=== PATIENT | female | born 1930 | race Two or more races ===

== ENCOUNTER 2017-05-14 18:47 | Inpatient (IN) | payer MEDICARE, OTHER ==
[2017-05-14 21:21] LABS: ADD UMIC YES; UR ASCORBIC ACID NEGATIVE (NEGATIVE); UR BILIRUBIN (Dip) NEGATIVE (NEGATIVE); UR BLOOD (Dip) 1+ mg/dL (NEGATIVE); UR CLARITY CLEAR (CLEAR); UR COLOR STRAW (YELLOW); UR GLUCOSE (Dip) NEGATIVE (NEGATIVE); UR KETONES (Dip) NEGATIVE (NEGATIVE); UR LEUKOCYTE ESTERASE (Dip) 2+ Leu/ul (NEGATIVE); UR NITRITE (Dip) NEGATIVE (NEGATIVE); UR RBC 0 /HPF (0-5); UR SPECIFIC GRAVITY (Dip) 1.005 (1.003-1.030); UR TOTAL PROTEIN (Dip) NEGATIVE (NEGATIVE); UR UROBILINOGEN (Dip) NEGATIVE (NEGATIVE); UR WBC 21 /HPF (0-5)
[2017-05-14 21:33] LABS: ADD MAN DIFF? NO
[2017-05-14 21:36] LABS: WHITE BLOOD COUNT 6.1 10^3/ul (4.8-10.8)
[2017-05-14 21:36] LABS: BASOPHILS % 0.5 % (0.0-2.0); EOSINOPHILS % 0.3 % (0.0-7.0); HEMATOCRIT 34.7 % (37.0-47.0); HEMOGLOBIN 10.8 g/dl (12.0-16.0); LYMPHOCYTES # 1.8 10^3/ul (0.8-2.9); LYMPHOCYTES % 29.3 % (15.0-51.0); MEAN CORPUSCULAR HEMOGLOBIN 23.5 pg (29.0-33.0); MEAN CORPUSCULAR HGB CONC 31.1 g/dl (32.0-37.0); MEAN CORPUSCULAR VOLUME 75.6 fl (82.0-101.0); MEAN PLATELET VOLUME 9.7 fl (7.4-10.4); MONOCYTE # 0.7 10^3/ul (0.3-0.9); MONOCYTES % 10.7 % (0.0-11.0); NEUTROPHIL # 3.6 10^3/ul (1.6-7.5); NEUTROPHILS % 58.5 % (39.0-77.0); PLATELET COUNT 187 10^3/UL (140-415); RED BLOOD COUNT 4.59 10^6/ul (4.20-5.40); RED CELL DISTRIBUTION WIDTH 15.9 % (11.5-14.5)
[2017-05-14] MEDS: morphine 2 MG INJ IV (21:38)
[2017-05-14] MEDS: SOD CHLORIDE 0.9% 1,000 ML IV (21:40)
[2017-05-14 21:53] LABS: ALANINE AMINOTRANSFERASE 24 IU/L (13-69); ALBUMIN 4.6 g/dl (3.3-4.9); ALBUMIN/GLOBULIN RATIO 1.17; ALKALINE PHOSPHATASE 126 IU/L (42-121); ANION GAP 18 (8-16); ASPARTATE AMINO TRANSFERASE 28 IU/L (15-46); BILIRUBIN,INDIRECT 0.1 mg/dl (0-1.1); BILIRUBIN,TOTAL 0.1 mg/dl (0.2-1.3); BLOOD UREA NITROGEN 25 mg/dl (7-20); CALCIUM 9.3 mg/dl (8.4-10.2); CARBON DIOXIDE 28 mmol/L (21-31); CHLORIDE 102 mmol/L (97-110); CREATININE 0.91 mg/dl (0.44-1.00); GLUCOSE 97 mg/dl (70-220); LIPASE 62 U/L (23-300); POTASSIUM 4.1 mmol/L (3.5-5.1); SODIUM 144 mmol/L (135-144); TOTAL PROTEIN 8.5 g/dl (6.1-8.1)
[2017-05-14 21:57] LABS: LACTIC ACID 1.4 mmol/L (0.5-2.0)
[2017-05-14 22:04] LABS: TROPONIN-I < 0.012 ng/ml (0.00-0.12)
[2017-05-14] MEDS: SOD CHLORIDE 0.9% 100 ML (22:57)
[2017-05-14] MEDS: IOHEXOL 300MG/ML 150 ML BTL (22:57)
[2017-05-14] MEDS: traMADol 50 MG TAB PO (23:21)
[2017-05-15] MEDS ORDERED: ONDANSETRON 4 MG INJ IV
[2017-05-15] MEDS: CEFEPIME 1GM/50 ML (PMX) 50 ML IVPB ×2 (00:42→23:26)
[2017-05-15] MEDS: SOD CHLORIDE 0.9% 1,000 ML IV ×2 (03:38→17:57)
[2017-05-15 04:47] LABS: ADD MAN DIFF? NO
[2017-05-15 04:53] LABS: WHITE BLOOD COUNT 4.5 10^3/ul (4.8-10.8)
[2017-05-15 04:53] LABS: BASOPHILS % 0.4 % (0.0-2.0); EOSINOPHILS % 0.4 % (0.0-7.0); HEMATOCRIT 31.1 % (37.0-47.0); HEMOGLOBIN 9.8 g/dl (12.0-16.0); LYMPHOCYTES # 1.3 10^3/ul (0.8-2.9); LYMPHOCYTES % 28.3 % (15.0-51.0); MEAN CORPUSCULAR HGB CONC 31.5 g/dl (32.0-37.0); MEAN PLATELET VOLUME 9.3 fl (7.4-10.4); MONOCYTE # 0.6 10^3/ul (0.3-0.9); MONOCYTES % 14.2 % (0.0-11.0); NEUTROPHIL # 2.5 10^3/ul (1.6-7.5); PLATELET COUNT 144 10^3/UL (140-415); RED BLOOD COUNT 4.09 10^6/ul (4.20-5.40); RED CELL DISTRIBUTION WIDTH 15.6 % (11.5-14.5)
[2017-05-15 05:15] LABS: ALANINE AMINOTRANSFERASE 27 IU/L (13-69); ALBUMIN 3.7 g/dl (3.3-4.9); ALBUMIN/GLOBULIN RATIO 1.23; ALKALINE PHOSPHATASE 108 IU/L (42-121); ANION GAP 14 (8-16); ASPARTATE AMINO TRANSFERASE 17 IU/L (15-46); BILIRUBIN,INDIRECT 0.1 mg/dl (0-1.1); BILIRUBIN,TOTAL 0.1 mg/dl (0.2-1.3); BLOOD UREA NITROGEN 21 mg/dl (7-20); CALCIUM 8.8 mg/dl (8.4-10.2); CARBON DIOXIDE 28 mmol/L (21-31); CHLORIDE 107 mmol/L (97-110); CREATININE 0.83 mg/dl (0.44-1.00); GLUCOSE 108 mg/dl (70-220); MAGNESIUM 1.4 mg/dl (1.7-2.5); PHOSPHORUS 3.6 mg/dl (2.5-4.9); POTASSIUM 3.7 mmol/L (3.5-5.1); SODIUM 145 mmol/L (135-144); TOTAL PROTEIN 6.7 g/dl (6.1-8.1)
[2017-05-15 05:56] LABS: IRON 49 ug/dl (35-150)
[2017-05-15 05:57] LABS: URIC ACID 6.3 mg/dl (3.1-7.9)
[2017-05-15 06:05] LABS: % IRON SATURATION 13 % SAT (22-52); TOTAL IRON BINDING CAPACITY 371 ug/dl (241-421)
[2017-05-15 06:30] LABS: FERRITIN 10.8 ng/ml (11.1-264.0)
[2017-05-15 07:00] LABS: FOLATE 9.4 ng/ml (2.8-20.0)
[2017-05-15] MEDS: traMADol 50 MG TAB PO ×2 (09:38→23:24)
[2017-05-15] MEDS: CYANOCOBALAMIN 1000 MCG INJ IM (09:39)
[2017-05-15 09:50] LABS: ERYTHROCYTE SEDIMENTATION RATE 35 mm/Hr (0-30)
[2017-05-15 11:45] LABS: CANCER ANTIGEN 125 < 5.5 U/ml (0.0-35.0)
[2017-05-15] MEDS: LACTULOSE 30ML CUP PO ×3 (12:58→21:42)
[2017-05-15] MEDS: MAGNESIUM CITRATE 300 ML BTL PO (14:21)
[2017-05-15] MEDS: MAGNESIUM SULFATE 2 GM/50 ML 50 ML IVPB (14:22)
[2017-05-15] MEDS: SOD FERRIC GLUC COMPLX 125 MG in SOD CHLORIDE 0.9% 100 ML IVPB (16:53)
[2017-05-15] MEDS: VALSARTAN 160 MG TAB PO (21:41)
[2017-05-15] MEDS: ATORVASTATIN 40 MG TAB PO (21:42)
[2017-05-15] MEDS: FAMOTIDINE 20 MG TAB PO (21:42)
[2017-05-16] MEDS: LACTULOSE 30ML CUP PO ×6 (01:00→20:45)
[2017-05-16] MEDS: SOD CHLORIDE 0.9% 1,000 ML IV (01:03)
[2017-05-16] MEDS: ZOLPIDEM 5 MG TAB PO ×2 (01:07→23:00)
[2017-05-16 06:50] LABS: ADD MAN DIFF? NO
[2017-05-16 06:57] LABS: BASOPHILS % 0.3 % (0.0-2.0); EOSINOPHILS % 0.8 % (0.0-7.0); HEMATOCRIT 29.8 % (37.0-47.0); HEMOGLOBIN 9.3 g/dl (12.0-16.0); LYMPHOCYTES # 1.1 10^3/ul (0.8-2.9); LYMPHOCYTES % 28.9 % (15.0-51.0); MEAN CORPUSCULAR HEMOGLOBIN 24.2 pg (29.0-33.0); MEAN CORPUSCULAR HGB CONC 31.2 g/dl (32.0-37.0); MEAN CORPUSCULAR VOLUME 77.4 fl (82.0-101.0); MONOCYTE # 0.6 10^3/ul (0.3-0.9); NEUTROPHIL # 2.2 10^3/ul (1.6-7.5); NEUTROPHILS % 54.5 % (39.0-77.0); PLATELET COUNT 154 10^3/UL (140-415); RED BLOOD COUNT 3.85 10^6/ul (4.20-5.40); RED CELL DISTRIBUTION WIDTH 15.8 % (11.5-14.5)
[2017-05-16 06:57] LABS: WHITE BLOOD COUNT 3.9 10^3/ul (4.8-10.8)
[2017-05-16 07:20] LABS: ANION GAP 13 (8-16); BLOOD UREA NITROGEN 13 mg/dl (7-20); CALCIUM 8.6 mg/dl (8.4-10.2); CARBON DIOXIDE 27 mmol/L (21-31); CHLORIDE 110 mmol/L (97-110); CREATININE 0.75 mg/dl (0.44-1.00); GLUCOSE 104 mg/dl (70-220); MAGNESIUM 2.1 mg/dl (1.7-2.5); PHOSPHORUS 3.3 mg/dl (2.5-4.9); POTASSIUM 3.8 mmol/L (3.5-5.1); SODIUM 146 mmol/L (135-144)
[2017-05-16] MEDS: CYANOCOBALAMIN 1000 MCG INJ IM (09:22)
[2017-05-16] MEDS: CHOLECALCIFEROL 1,000 UNIT TAB PO (09:23)
[2017-05-16] MEDS: FAMOTIDINE 20 MG TAB PO ×3 (09:23→21:00)
[2017-05-16] MEDS: SERTRALINE 100 MG TAB PO (09:23)
[2017-05-16] MEDS: ASPIRIN (EC) 81 MG TAB PO (09:23)
[2017-05-16 11:02] LABS: CA27.29 17 U/mL (<38)
[2017-05-16] MEDS: SOD FERRIC GLUC COMPLX 125 MG in SOD CHLORIDE 0.9% 100 ML IVPB (17:44)
[2017-05-16] MEDS: FOSFOMYCIN 3 GM PACKET PO (17:44)
[2017-05-16] MEDS: DOXYCYCLINE 100 MG TAB PO ×2 (20:43→21:00)
[2017-05-16] MEDS: LIDOCAINE 5% PATCH TD (20:43)
[2017-05-16] MEDS: hydrOXYzine HCL 25 MG TAB PO ×2 (20:43→22:00)
[2017-05-16] MEDS: VALSARTAN 160 MG TAB PO (20:44)
[2017-05-16] MEDS: ATORVASTATIN 40 MG TAB PO (20:44)
[2017-05-16] MEDS: traMADol 50 MG TAB PO (20:45)
[2017-05-16] MEDS: SILVER SULFADIAZINE 1% 25 GM CR TOP (20:46)
[2017-05-17] MEDS: LACTULOSE 30ML CUP PO ×6 (01:00→21:36)
[2017-05-17] MEDS ORDERED: PANTOPRAZOLE (EC) 40 MG TAB PO (06:00)
[2017-05-17] MEDS: SERTRALINE 100 MG TAB PO (08:46)
[2017-05-17] MEDS: DOXYCYCLINE 100 MG TAB PO ×2 (08:46→21:36)
[2017-05-17] MEDS: hydrOXYzine HCL 25 MG TAB PO ×2 (08:46→21:36)
[2017-05-17] MEDS: FAMOTIDINE 20 MG TAB PO ×2 (08:46→21:36)
[2017-05-17] MEDS: CHOLECALCIFEROL 1,000 UNIT TAB PO (08:47)
[2017-05-17] MEDS: SILVER SULFADIAZINE 1% 25 GM CR TOP ×2 (08:47→21:37)
[2017-05-17] MEDS: LIDOCAINE 5% PATCH TD (08:47)
[2017-05-17] MEDS: ASPIRIN (EC) 81 MG TAB PO (08:47)
[2017-05-17] MEDS ORDERED: LIDOCAINE 5% PATCH TD (09:00)
[2017-05-17] MEDS: OXYBUTYNIN 5 MG TAB PO ×3 (09:00→21:36)
[2017-05-17] MEDS: CYANOCOBALAMIN 1000 MCG INJ IM ×2 (09:00→11:36)
[2017-05-17] MEDS: traMADol 50 MG TAB PO ×2 (11:27→21:36)
[2017-05-17] MEDS ORDERED: NON-FORMULARY/PATIENT OWN MED (Valsartan-Hydrochlorothiazide (Valsartan-HCTZ) 1 TAB) PO (12:00)
[2017-05-17] MEDS: HYDROCHLOROTHIAZIDE 25 MG TAB PO (12:07)
[2017-05-17] MEDS: VALSARTAN 160 MG TAB PO ×2 (12:07→21:35)
[2017-05-17] MEDS: PEG/ELECTROLYTES 4L BTL PO (15:03)
[2017-05-17] MEDS: SOD FERRIC GLUC COMPLX 125 MG in SOD CHLORIDE 0.9% 100 ML IVPB (17:35)
[2017-05-17] MEDS: ATORVASTATIN 40 MG TAB PO (21:00)
[2017-05-17] MEDS: ONDANSETRON 4 MG INJ IV (22:32)
[2017-05-18] MEDS: LACTULOSE 30ML CUP PO ×6 (00:31→21:00)
[2017-05-18] MEDS ORDERED: POTASSIUM CHLORIDE 50 ML IVPB (06:00)
[2017-05-18] MEDS: hydrOXYzine HCL 25 MG TAB PO ×2 (09:00→21:00)
[2017-05-18] MEDS: DOXYCYCLINE 100 MG TAB PO ×2 (09:00→21:59)
[2017-05-18] MEDS: ASPIRIN (EC) 81 MG TAB PO (09:00)
[2017-05-18] MEDS: SERTRALINE 100 MG TAB PO (09:00)
[2017-05-18] MEDS: VALSARTAN 160 MG TAB PO ×2 (09:00→21:59)
[2017-05-18] MEDS: CHOLECALCIFEROL 1,000 UNIT TAB PO (09:00)
[2017-05-18] MEDS: HYDROCHLOROTHIAZIDE 25 MG TAB PO (09:00)
[2017-05-18] MEDS: OXYBUTYNIN 5 MG TAB PO ×3 (09:00→21:59)
[2017-05-18] MEDS: FAMOTIDINE 20 MG TAB PO ×2 (09:00→21:59)
[2017-05-18] MEDS: LIDOCAINE 5% PATCH TD (10:04)
[2017-05-18] MEDS: CYANOCOBALAMIN 1000 MCG INJ IM (10:04)
[2017-05-18] MEDS: SILVER SULFADIAZINE 1% 25 GM CR TOP ×2 (10:30→22:01)
[2017-05-18] MEDS: DEXTROSE 5%-0.45% NACL 1,000 ML IV (13:36)
[2017-05-18] MEDS: SOD FERRIC GLUC COMPLX 125 MG in SOD CHLORIDE 0.9% 100 ML IVPB (17:00)
[2017-05-18] MEDS ORDERED: FENTAnyl 50 MCG/ML VIAL (17:49)
[2017-05-18] MEDS ORDERED: PROPOFOL 40 ML (17:49)
[2017-05-18] MEDS ORDERED: LIDOCAINE 100 MG SYRINGE (17:50)
[2017-05-18] MEDS ORDERED: EPHEDrine SULFATE 50 MG/5 ML SYG IV (18:00)
[2017-05-18] MEDS ORDERED: TRIMETHOBENZAMIDE 100 MG/ML VIAL IM (18:00)
[2017-05-18] MEDS ORDERED: FENTAnyl 50 MCG/ML VIAL IV ×3 (18:00)
[2017-05-18] MEDS ORDERED: HYDROmorphONE (0.2 MG/ML) 10ML SYG IV ×3 (18:00)
[2017-05-18] MEDS ORDERED: MEPERIDINE 25 MG INJ IV (18:00)
[2017-05-18] MEDS ORDERED: MIDAZOLAM 1 MG/ML 2 ML INJ IV (18:00)
[2017-05-18] MEDS ORDERED: DIPHENHYDRAMINE 50 MG INJ IV (18:00)
[2017-05-18] MEDS ORDERED: ALBUTEROL 0.083% (NEB) 2.5 MG/3 ML AMP HHN (18:00)
[2017-05-18] MEDS ORDERED: ONDANSETRON 4 MG INJ IV (18:00)
[2017-05-18] MEDS ORDERED: hydrALAzine 20 MG INJ IV (18:00)
[2017-05-18] MEDS ORDERED: LABETALOL HCL 20MG INJ IV (18:00)
[2017-05-18] MEDS ORDERED: IPRATROPIUM (NEB) 0.5 MG/2.5 ML AMP HHN (18:00)
[2017-05-18] MEDS: ATORVASTATIN 40 MG TAB PO (22:01)
[2017-05-18] MEDS: ZOLPIDEM 5 MG TAB PO (22:12)
[2017-05-18 22:32] LABS: CANCER ANTIGEN 15-3 11 U/mL (<32)
[2017-05-19] MEDS: traMADol 50 MG TAB PO ×2 (00:16→14:24)
[2017-05-19] MEDS: LACTULOSE 30ML CUP PO ×7 (01:00→22:20)
[2017-05-19 04:48] LABS: ADD MAN DIFF? NO
[2017-05-19 04:53] LABS: BASOPHILS % 0.4 % (0.0-2.0); EOSINOPHILS # 0.1 10^3/ul (0.0-0.5); HEMATOCRIT 31.6 % (37.0-47.0); HEMOGLOBIN 9.8 g/dl (12.0-16.0); LYMPHOCYTES % 20.5 % (15.0-51.0); MEAN CORPUSCULAR HEMOGLOBIN 24.1 pg (29.0-33.0); MEAN CORPUSCULAR VOLUME 77.8 fl (82.0-101.0); MEAN PLATELET VOLUME 9.9 fl (7.4-10.4); MONOCYTE # 0.7 10^3/ul (0.3-0.9); NEUTROPHIL # 3.1 10^3/ul (1.6-7.5); NEUTROPHILS % 63.3 % (39.0-77.0); PLATELET COUNT 156 10^3/UL (140-415); RED BLOOD COUNT 4.06 10^6/ul (4.20-5.40); RED CELL DISTRIBUTION WIDTH 15.9 % (11.5-14.5)
[2017-05-19 04:53] LABS: WHITE BLOOD COUNT 4.8 10^3/ul (4.8-10.8)
[2017-05-19 05:07] LABS: ANION GAP 12 (8-16); BLOOD UREA NITROGEN 11 mg/dl (7-20); CALCIUM 8.6 mg/dl (8.4-10.2); CARBON DIOXIDE 30 mmol/L (21-31); CHLORIDE 106 mmol/L (97-110); CREATININE 0.81 mg/dl (0.44-1.00); GLUCOSE 93 mg/dl (70-220); MAGNESIUM 1.7 mg/dl (1.7-2.5); POTASSIUM 3.8 mmol/L (3.5-5.1); SODIUM 144 mmol/L (135-144)
[2017-05-19] MEDS: SILVER SULFADIAZINE 1% 25 GM CR TOP ×2 (09:00→22:26)
[2017-05-19] MEDS: OXYBUTYNIN 5 MG TAB PO ×3 (09:57→22:18)
[2017-05-19] MEDS: ASPIRIN (EC) 81 MG TAB PO (09:57)
[2017-05-19] MEDS: CHOLECALCIFEROL 1,000 UNIT TAB PO (09:57)
[2017-05-19] MEDS: LIDOCAINE 5% PATCH TD (09:57)
[2017-05-19] MEDS: DOXYCYCLINE 100 MG TAB PO ×2 (09:58→22:19)
[2017-05-19] MEDS: HYDROCHLOROTHIAZIDE 25 MG TAB PO (09:58)
[2017-05-19] MEDS: FAMOTIDINE 20 MG TAB PO ×2 (09:58→22:19)
[2017-05-19] MEDS: CYANOCOBALAMIN 1000 MCG INJ IM (09:58)
[2017-05-19] MEDS: hydrOXYzine HCL 25 MG TAB PO ×2 (09:58→22:19)
[2017-05-19] MEDS: SERTRALINE 100 MG TAB PO (09:58)
[2017-05-19] MEDS: VALSARTAN 160 MG TAB PO ×2 (09:58→22:19)
[2017-05-19] MEDS: SOD FERRIC GLUC COMPLX 125 MG in SOD CHLORIDE 0.9% 100 ML IVPB (17:34)
[2017-05-19] MEDS: ATORVASTATIN 40 MG TAB PO (22:19)
[2017-05-19] MEDS: NYSTATIN 30 GM POWDER BTL TOP (22:20)
[2017-05-19] MEDS: ONDANSETRON 4 MG INJ IV (23:19)
[2017-05-20] MEDS: traMADol 50 MG TAB PO ×2 (00:33→22:23)
[2017-05-20] MEDS: LACTULOSE 30ML CUP PO ×5 (01:00→21:00)
[2017-05-20] MEDS: DOXYCYCLINE 100 MG TAB PO ×2 (09:03→22:12)
[2017-05-20] MEDS: CHOLECALCIFEROL 1,000 UNIT TAB PO (09:03)
[2017-05-20] MEDS: OXYBUTYNIN 5 MG TAB PO ×3 (09:04→21:00)
[2017-05-20] MEDS: hydrOXYzine HCL 25 MG TAB PO ×2 (09:04→22:12)
[2017-05-20] MEDS: ASPIRIN (EC) 81 MG TAB PO (09:04)
[2017-05-20] MEDS: SERTRALINE 100 MG TAB PO (09:04)
[2017-05-20] MEDS: FAMOTIDINE 20 MG TAB PO ×2 (09:04→21:00)
[2017-05-20] MEDS: HYDROCHLOROTHIAZIDE 25 MG TAB PO (09:05)
[2017-05-20] MEDS: VALSARTAN 160 MG TAB PO ×2 (09:07→22:15)
[2017-05-20] MEDS: LIDOCAINE 5% PATCH TD ×3 (09:08→22:38)
[2017-05-20] MEDS: CYANOCOBALAMIN 1000 MCG INJ IM (09:08)
[2017-05-20] MEDS: SILVER SULFADIAZINE 1% 25 GM CR TOP ×2 (09:14→22:39)
[2017-05-20] MEDS: NYSTATIN 30 GM POWDER BTL TOP ×2 (09:14→22:39)
[2017-05-20] MEDS ORDERED: CYANOCOBALAMIN 1000 MCG INJ IM (15:00)
[2017-05-20] MEDS: ATORVASTATIN 40 MG TAB PO (21:00)
[2017-05-20] MEDS: GUAIFENESIN 20 MG/ML 5ML CUP PO (22:12)
[2017-05-21] MEDS: LACTULOSE 30ML CUP PO ×7 (01:00→21:20)
[2017-05-21] MEDS: LIDOCAINE 5% PATCH TD ×3 (09:00→11:16)
[2017-05-21] MEDS: CYANOCOBALAMIN 1000 MCG INJ IM (11:08)
[2017-05-21] MEDS: VALSARTAN 160 MG TAB PO ×2 (11:09→21:19)
[2017-05-21] MEDS: ASPIRIN (EC) 81 MG TAB PO (11:09)
[2017-05-21] MEDS: hydrOXYzine HCL 25 MG TAB PO ×2 (11:09→22:11)
[2017-05-21] MEDS: OXYBUTYNIN 5 MG TAB PO ×3 (11:09→21:20)
[2017-05-21] MEDS: FAMOTIDINE 20 MG TAB PO ×2 (11:10→21:19)
[2017-05-21] MEDS: SERTRALINE 100 MG TAB PO (11:10)
[2017-05-21] MEDS: DOXYCYCLINE 100 MG TAB PO ×2 (11:10→21:18)
[2017-05-21] MEDS: CHOLECALCIFEROL 1,000 UNIT TAB PO (11:10)
[2017-05-21] MEDS: HYDROCHLOROTHIAZIDE 25 MG TAB PO (11:10)
[2017-05-21] MEDS: NYSTATIN 30 GM POWDER BTL TOP ×2 (11:11→21:20)
[2017-05-21] MEDS: SILVER SULFADIAZINE 1% 25 GM CR TOP ×2 (11:11→21:20)
[2017-05-21] MEDS: ONDANSETRON 4 MG INJ IV (13:55)
[2017-05-21] MEDS ORDERED: IPRATROPIUM (NEB) 0.5 MG/2.5 ML AMP HHN (18:00)
[2017-05-21] MEDS: AZITHROMYCIN 500MG/NS (PMX) 250 ML IVPB (20:02)
[2017-05-21] MEDS: LEVOFLOXACIN 500 MG TAB PO (21:19)
[2017-05-21] MEDS: ATORVASTATIN 40 MG TAB PO (21:43)
[2017-05-22] MEDS: ZOLPIDEM 5 MG TAB PO ×2 (00:10→22:53)
[2017-05-22] MEDS: LACTULOSE 30ML CUP PO ×6 (01:00→20:20)
[2017-05-22] MEDS: traMADol 50 MG TAB PO ×3 (04:08→21:20)
[2017-05-22] MEDS: LEVOFLOXACIN 250 MG TAB PO (05:50)
[2017-05-22] MEDS: CYANOCOBALAMIN 1000 MCG INJ IM (08:33)
[2017-05-22] MEDS: FAMOTIDINE 20 MG TAB PO ×2 (08:33→20:20)
[2017-05-22] MEDS: ASPIRIN (EC) 81 MG TAB PO (08:33)
[2017-05-22] MEDS: CHOLECALCIFEROL 1,000 UNIT TAB PO (08:33)
[2017-05-22] MEDS: DOXYCYCLINE 100 MG TAB PO ×2 (08:33→20:20)
[2017-05-22] MEDS: HYDROCHLOROTHIAZIDE 25 MG TAB PO (08:34)
[2017-05-22] MEDS: OXYBUTYNIN 5 MG TAB PO ×4 (08:34→20:29)
[2017-05-22] MEDS: hydrOXYzine HCL 25 MG TAB PO ×2 (08:35→20:23)
[2017-05-22] MEDS: VALSARTAN 160 MG TAB PO ×2 (08:35→21:15)
[2017-05-22] MEDS: SERTRALINE 100 MG TAB PO (08:35)
[2017-05-22] MEDS: LIDOCAINE 5% PATCH TD ×3 (08:36→08:43)
[2017-05-22] MEDS: SILVER SULFADIAZINE 1% 25 GM CR TOP ×2 (08:43→20:24)
[2017-05-22] MEDS: NYSTATIN 30 GM POWDER BTL TOP ×2 (08:43→20:24)
[2017-05-22 11:26] LABS: HEMATOCRIT 37.1 % (37.0-47.0); HEMOGLOBIN 11.5 g/dl (12.0-16.0); MEAN CORPUSCULAR VOLUME 77.5 fl (82.0-101.0); MEAN PLATELET VOLUME 10.3 fl (7.4-10.4); PLATELET COUNT 162 10^3/UL (140-415); RED BLOOD COUNT 4.79 10^6/ul (4.20-5.40); RED CELL DISTRIBUTION WIDTH 16.4 % (11.5-14.5)
[2017-05-22 11:26] LABS: WHITE BLOOD COUNT 3.5 10^3/ul (4.8-10.8)
[2017-05-22 11:30] LABS: ADD MAN DIFF? YES; POSITIVE DIFF @See below
[2017-05-22 13:22] LABS: ANISOCYTOSIS 2+ (0-0); BAND NEUTROPHILS #M 0.4 10^3/ul (0.0-0.6); BAND NEUTROPHILS % (M) 12 % (0-4); EOSINOPHILS % (M) 1 % (0-7); ERYTHROBLAST% (NRBC) (M) 3 % (0-0); GIANT THROMBO% (M) 3 % (0-0); LYMPHOCYTES #M 0.4 10^3/ul (0.8-2.9); LYMPHOCYTES % (M) 14 % (15-51); MICROCYTOSIS 2+ (0-0); MONOCYTE #M 0.3 10^3/ul (0.3-0.9); MONOCYTES % (M) 10 % (0-11); MYELOCYTES % (M) 1 % (0-0); PLATELET ESTIMATE NORMAL; POIKILOCYTOSIS 2+ (0-0); REACTIVE LYMPHOCYTES #M 0.5 10^3/ul (0.0-0.0); REACTIVE LYMPHOCYTES% (M) 16 % (0-0); SEG NEUT #M 1.6 10^3/ul (1.6-7.5); SEGMENTED NEUTROPHILS (M) % 46 % (39-77); SMUDGE%M 10 % (0-0)
[2017-05-22] MEDS: IPRATROPIUM (NEB) 0.5 MG/2.5 ML AMP HHN ×3 (14:01→21:17)
[2017-05-22] MEDS: GUAIFENESIN 20 MG/ML 5ML CUP PO ×4 (14:17→20:22)
[2017-05-22] MEDS: AZITHROMYCIN 250 MG TAB PO (18:01)
[2017-05-22] MEDS: ATORVASTATIN 40 MG TAB PO (20:20)
[2017-05-23] MEDS: LACTULOSE 30ML CUP PO ×6 (00:38→20:38)
[2017-05-23] MEDS: IPRATROPIUM (NEB) 0.5 MG/2.5 ML AMP HHN ×6 (01:00→20:11)
[2017-05-23] MEDS: GUAIFENESIN 20 MG/ML 5ML CUP PO ×6 (04:38→20:38)
[2017-05-23 05:53] LABS: WHITE BLOOD COUNT 3.8 10^3/ul (4.8-10.8)
[2017-05-23 05:53] LABS: HEMOGLOBIN 11.3 g/dl (12.0-16.0); MEAN CORPUSCULAR HEMOGLOBIN 23.9 pg (29.0-33.0); MEAN CORPUSCULAR HGB CONC 30.5 g/dl (32.0-37.0); MEAN CORPUSCULAR VOLUME 78.2 fl (82.0-101.0); MEAN PLATELET VOLUME 9.7 fl (7.4-10.4); PLATELET COUNT 164 10^3/UL (140-415); RED BLOOD COUNT 4.73 10^6/ul (4.20-5.40); RED CELL DISTRIBUTION WIDTH 16.8 % (11.5-14.5)
[2017-05-23 06:09] LABS: ADD MAN DIFF? YES; POSITIVE DIFF @See below
[2017-05-23 06:31] LABS: ANION GAP 17 (8-16); BLOOD UREA NITROGEN 22 mg/dl (7-20); CALCIUM 8.9 mg/dl (8.4-10.2); CARBON DIOXIDE 28 mmol/L (21-31); CHLORIDE 100 mmol/L (97-110); CREATININE 1.07 mg/dl (0.44-1.00); GLUCOSE 98 mg/dl (70-220); MAGNESIUM 1.5 mg/dl (1.7-2.5); PHOSPHORUS 4.9 mg/dl (2.5-4.9); POTASSIUM 4.4 mmol/L (3.5-5.1); SODIUM 141 mmol/L (135-144)
[2017-05-23 08:01] LABS: ANISOCYTOSIS 3+ (0-0); BAND NEUTROPHILS #M 0.2 10^3/ul (0.0-0.6); BAND NEUTROPHILS % (M) 6 % (0-4); GIANT THROMBO% (M) 2 % (0-0); LYMPHOCYTES #M 0.7 10^3/ul (0.8-2.9); LYMPHOCYTES % (M) 21 % (15-51); MICROCYTOSIS 2+ (0-0); MONOCYTE #M 0.5 10^3/ul (0.3-0.9); MONOCYTES % (M) 15 % (0-11); MYELOCYTES % (M) 1 % (0-0); PLATELET ESTIMATE NORMAL; POIKILOCYTOSIS 2+ (0-0); POLYCHROMASIA 3+ (0-0); PROMYELOCYTES % (M) 1 % (0-0); REACTIVE LYMPHOCYTES #M 0.6 10^3/ul (0.0-0.0); REACTIVE LYMPHOCYTES% (M) 17 % (0-0); SEG NEUT #M 1.5 10^3/ul (1.6-7.5); SEGMENTED NEUTROPHILS (M) % 39 % (39-77); SMUDGE%M 2 % (0-0)
[2017-05-23] MEDS: CHOLECALCIFEROL 1,000 UNIT TAB PO (09:47)
[2017-05-23] MEDS: OXYBUTYNIN 5 MG TAB PO ×3 (09:47→20:38)
[2017-05-23] MEDS: ASPIRIN (EC) 81 MG TAB PO (09:47)
[2017-05-23] MEDS: hydrOXYzine HCL 25 MG TAB PO ×2 (09:47→20:41)
[2017-05-23] MEDS: CYANOCOBALAMIN 1000 MCG INJ IM (09:47)
[2017-05-23] MEDS: SERTRALINE 100 MG TAB PO (09:47)
[2017-05-23] MEDS: DOXYCYCLINE 100 MG TAB PO ×2 (09:48→20:38)
[2017-05-23] MEDS: FAMOTIDINE 20 MG TAB PO ×2 (09:48→20:39)
[2017-05-23] MEDS: HYDROCHLOROTHIAZIDE 25 MG TAB PO (09:49)
[2017-05-23] MEDS: MAGNESIUM SULFATE 2 GM/50 ML 50 ML IVPB (09:50)
[2017-05-23] MEDS: NYSTATIN 30 GM POWDER BTL TOP ×2 (09:51→20:42)
[2017-05-23] MEDS: SILVER SULFADIAZINE 1% 25 GM CR TOP ×2 (09:51→20:42)
[2017-05-23] MEDS: LIDOCAINE 5% PATCH TD ×3 (09:56→09:58)
[2017-05-23] MEDS: AZITHROMYCIN 250 MG TAB PO (18:07)
[2017-05-23] MEDS: ATORVASTATIN 40 MG TAB PO (20:39)
== END 2017-05-23 21:30 | DRG 312 ==
LOC: PP2 23:54 → E/R 18:47
PROC: 0DJD8ZZ Inspection of Lower Intestinal Tract, Via Natural or Artificial Opening Endoscopic (ICD-10-PCS; principal; 2017-05-18 17:05)
DX: R55 Syncope and collapse (principal); J90 Pleural effusion, not elsewhere classified; E87.0 Hyperosmolality and hypernatremia; D61.818 Other pancytopenia; R65.10 Systemic inflammatory response syndrome (SIRS) of non-infectious origin without acute organ dysfunction; G91.2 (Idiopathic) normal pressure hydrocephalus; N39.0 Urinary tract infection, site not specified; M48.52XA Collapsed vertebra, not elsewhere classified, cervical region, initial encounter for fracture; J98.11 Atelectasis; L03.116 Cellulitis of left lower limb; L03.115 Cellulitis of right lower limb; M48.54XA Collapsed vertebra, not elsewhere classified, thoracic region, initial encounter for fracture; M48.56XA Collapsed vertebra, not elsewhere classified, lumbar region, initial encounter for fracture; E83.42 Hypomagnesemia; E86.0 Dehydration; I10 Essential (primary) hypertension; Z85.3 Personal history of malignant neoplasm of breast; E78.5 Hyperlipidemia, unspecified; F32.9 Major depressive disorder, single episode, unspecified; D50.9 Iron deficiency anemia, unspecified; R15.9 Full incontinence of feces; R32 Unspecified urinary incontinence; K21.9 Gastro-esophageal reflux disease without esophagitis; I25.10 Atherosclerotic heart disease of native coronary artery without angina pectoris; D25.9 Leiomyoma of uterus, unspecified; J43.2 Centrilobular emphysema; K44.9 Diaphragmatic hernia without obstruction or gangrene; M40.203 Unspecified kyphosis, cervicothoracic region; I51.7 Cardiomegaly; E53.8 Deficiency of other specified B group vitamins; K62.89 Other specified diseases of anus and rectum; K64.4 Residual hemorrhoidal skin tags; W19.XXXA Unspecified fall, initial encounter; Z91.81 History of falling; S40.011A Contusion of right shoulder, initial encounter; M25.521 Pain in right elbow; B95.2 Enterococcus as the cause of diseases classified elsewhere; R26.81 Unsteadiness on feet
CPT/HCPCS: 36415; 70450; 70553; 71045; 71270; 72072; 72170; 73030-RT; 73080-RT; 74178; 76856; 80048; 80053; 81001; 82306; 82378; 82607; 82728; 82746; 83540; 83605; 83690; 83735; 84100; 84132; 84443; 84484; 84560; 85025; 85651; 86300; 86304; 87040; 87086; 93005; 93970; 94640; 96365; 96366; 97116; 97162; 97165; 97530; 97535; 99285-25; G0378

== ENCOUNTER 2017-05-23 21:43 | Inpatient (IN) | payer MEDICARE, OTHER ==
[2017-05-24] MEDS: RANITIDINE 150 MG TAB PO ×3 (00:42→21:00)
[2017-05-24] MEDS: ZOLPIDEM 5 MG TAB PO (00:43)
[2017-05-24] MEDS: traMADol 50 MG TAB PO ×2 (00:43→09:20)
[2017-05-24] MEDS: IPRATROPIUM (NEB) 0.5 MG/2.5 ML AMP INH ×5 (01:00→20:45)
[2017-05-24] MEDS: GUAIFENESIN 20 MG/ML 5ML CUP PO ×6 (01:00→20:58)
[2017-05-24 06:03] LABS: ADD UMIC YES; UR ASCORBIC ACID NEGATIVE (NEGATIVE); UR BILIRUBIN (Dip) NEGATIVE (NEGATIVE); UR BLOOD (Dip) 2+ mg/dL (NEGATIVE); UR CLARITY CLEAR (CLEAR); UR COLOR YELLOW (YELLOW); UR GLUCOSE (Dip) NEGATIVE (NEGATIVE); UR KETONES (Dip) NEGATIVE (NEGATIVE); UR LEUKOCYTE ESTERASE (Dip) NEGATIVE Leu/ul (NEGATIVE); UR NITRITE (Dip) NEGATIVE (NEGATIVE); UR RBC 2 /HPF (0-5); UR SPECIFIC GRAVITY (Dip) 1.013 (1.003-1.030); UR TOTAL PROTEIN (Dip) NEGATIVE (NEGATIVE); UR UROBILINOGEN (Dip) NEGATIVE (NEGATIVE); UR WBC 0 /HPF (0-5)
[2017-05-24] MEDS: PANTOPRAZOLE (EC) 40 MG TAB PO (07:01)
[2017-05-24 07:09] LABS: HEMATOCRIT 37.8 % (37.0-47.0); HEMOGLOBIN 12.1 g/dl (12.0-16.0); MEAN CORPUSCULAR HEMOGLOBIN 24.5 pg (29.0-33.0); MEAN CORPUSCULAR VOLUME 76.7 fl (82.0-101.0); MEAN PLATELET VOLUME 10.6 fl (7.4-10.4); PLATELET COUNT 161 10^3/UL (140-415); RED BLOOD COUNT 4.93 10^6/ul (4.20-5.40); RED CELL DISTRIBUTION WIDTH 16.6 % (11.5-14.5)
[2017-05-24 07:09] LABS: WHITE BLOOD COUNT 4.4 10^3/ul (4.8-10.8)
[2017-05-24 07:18] LABS: POSITIVE DIFF @See below
[2017-05-24 07:19] LABS: ADD MAN DIFF? YES
[2017-05-24 07:48] LABS: ALANINE AMINOTRANSFERASE 27 IU/L (13-69); ALBUMIN 3.7 g/dl (3.3-4.9); ALBUMIN/GLOBULIN RATIO 1.12; ALKALINE PHOSPHATASE 106 IU/L (42-121); ANION GAP 17 (8-16); ASPARTATE AMINO TRANSFERASE 36 IU/L (15-46); BLOOD UREA NITROGEN 25 mg/dl (7-20); CALCIUM 8.6 mg/dl (8.4-10.2); CARBON DIOXIDE 23 mmol/L (21-31); CHLORIDE 99 mmol/L (97-110); CREATININE 0.94 mg/dl (0.44-1.00); GLUCOSE 115 mg/dl (70-220); POTASSIUM 3.9 mmol/L (3.5-5.1); SODIUM 135 mmol/L (135-144)
[2017-05-24] MEDS: DOXYCYCLINE 100 MG TAB PO ×3 (09:00→20:59)
[2017-05-24] MEDS: LIDOCAINE 5% PATCH TD ×4 (09:00→09:19)
[2017-05-24 09:17] LABS: ANISOCYTOSIS 3+ (0-0); BAND NEUTROPHILS #M 0.3 10^3/ul (0.0-0.6); BAND NEUTROPHILS % (M) 7 % (0-4); EOSINOPHILS % (M) 2 % (0-7); HYPOCHROMASIA 1+ (0-0); LYMPHOCYTES #M 1.1 10^3/ul (0.8-2.9); LYMPHOCYTES % (M) 26 % (15-51); MICROCYTOSIS 3+ (0-0); MONOCYTE #M 0.3 10^3/ul (0.3-0.9); MONOCYTES % (M) 8 % (0-11); PLATELET ESTIMATE NORMAL; POIKILOCYTOSIS 2+ (0-0); POLYCHROMASIA 1+ (0-0); REACTIVE LYMPHOCYTES #M 0.2 10^3/ul (0.0-0.0); REACTIVE LYMPHOCYTES% (M) 5 % (0-0); SEG NEUT #M 2.3 10^3/ul (1.6-7.5); SEGMENTED NEUTROPHILS (M) % 52 % (39-77); SMUDGE%M 4 % (0-0)
[2017-05-24] MEDS: CYANOCOBALAMIN 1000 MCG INJ IM (09:18)
[2017-05-24] MEDS: ONDANSETRON 4 MG INJ IV (09:18)
[2017-05-24] MEDS: SILVER SULFADIAZINE 1% 25 GM CR TOP ×2 (09:18→21:02)
[2017-05-24] MEDS: NYSTATIN 30 GM POWDER BTL TOP ×2 (09:18→21:19)
[2017-05-24] MEDS: OXYBUTYNIN 5 MG TAB PO ×3 (09:19→21:01)
[2017-05-24] MEDS: FAMOTIDINE 20 MG TAB PO ×2 (09:20→21:00)
[2017-05-24] MEDS: ASPIRIN (EC) 81 MG TAB PO (09:20)
[2017-05-24] MEDS: hydrOXYzine HCL 25 MG TAB PO ×2 (09:20→21:00)
[2017-05-24] MEDS: SERTRALINE 100 MG TAB PO (09:20)
[2017-05-24] MEDS: CHOLECALCIFEROL 1,000 UNIT TAB PO (09:20)
[2017-05-24] MEDS: VALSARTAN 80 MG TAB PO ×2 (11:16→20:59)
[2017-05-24] MEDS ORDERED: MAGNESIUM HYDROXIDE 30ML CUP PO (15:30)
[2017-05-24] MEDS: AZITHROMYCIN 250 MG TAB PO (17:33)
[2017-05-24] MEDS: ATORVASTATIN 20 MG TAB PO (21:00)
[2017-05-24] MEDS: SENNA TAB PO (21:00)
[2017-05-24] MEDS: DOCUSATE SODIUM 100 MG CAP PO (21:00)
[2017-05-25] MEDS: GUAIFENESIN 20 MG/ML 5ML CUP PO ×6 (01:00→20:44)
[2017-05-25] MEDS: IPRATROPIUM (NEB) 0.5 MG/2.5 ML AMP INH ×6 (01:00→21:01)
[2017-05-25 01:42] LABS: TROPONIN-I 0.029 ng/ml (0.00-0.12)
[2017-05-25] MEDS: PANTOPRAZOLE (EC) 40 MG TAB PO ×2 (06:38→22:02)
[2017-05-25 06:46] LABS: WHITE BLOOD COUNT 3.4 10^3/ul (4.8-10.8)
[2017-05-25 06:46] LABS: HEMATOCRIT 35.1 % (37.0-47.0); HEMOGLOBIN 11.3 g/dl (12.0-16.0); MEAN CORPUSCULAR HEMOGLOBIN 24.6 pg (29.0-33.0); MEAN CORPUSCULAR HGB CONC 32.2 g/dl (32.0-37.0); MEAN CORPUSCULAR VOLUME 76.5 fl (82.0-101.0); MEAN PLATELET VOLUME 10.6 fl (7.4-10.4); PLATELET COUNT 149 10^3/UL (140-415); RED BLOOD COUNT 4.59 10^6/ul (4.20-5.40); RED CELL DISTRIBUTION WIDTH 17.1 % (11.5-14.5)
[2017-05-25 07:07] LABS: ANION GAP 15 (8-16); BLOOD UREA NITROGEN 40 mg/dl (7-20); CALCIUM 8.7 mg/dl (8.4-10.2); CARBON DIOXIDE 26 mmol/L (21-31); CHLORIDE 99 mmol/L (97-110); CREATININE 1.27 mg/dl (0.44-1.00); GLUCOSE 90 mg/dl (70-220); MAGNESIUM 1.8 mg/dl (1.7-2.5); PHOSPHORUS 3.9 mg/dl (2.5-4.9); POTASSIUM 4.2 mmol/L (3.5-5.1); SODIUM 136 mmol/L (135-144)
[2017-05-25 07:08] LABS: ADD MAN DIFF? YES; POSITIVE DIFF @See below
[2017-05-25 07:17] LABS: TROPONIN-I 0.024 ng/ml (0.00-0.12)
[2017-05-25] MEDS: OXYBUTYNIN 5 MG TAB PO ×3 (09:00→20:42)
[2017-05-25] MEDS: SENNA TAB PO ×2 (09:00→14:08)
[2017-05-25] MEDS: DOCUSATE SODIUM 100 MG CAP PO ×3 (09:00→21:00)
[2017-05-25] MEDS: VALSARTAN 80 MG TAB PO (09:00)
[2017-05-25 09:26] LABS: ANISOCYTOSIS 2+ (0-0); BAND NEUTROPHILS #M 0.4 10^3/ul (0.0-0.6); BAND NEUTROPHILS % (M) 14 % (0-4); EOSINOPHILS % (M) 1 % (0-7); LYMPHOCYTES % (M) 31 % (15-51); METAMYELOCYTES %M 1 % (0-0); MICROCYTOSIS 2+ (0-0); MONOCYTE #M 0.4 10^3/ul (0.3-0.9); MONOCYTES % (M) 12 % (0-11); PLATELET ESTIMATE NORMAL; POIKILOCYTOSIS 1+ (0-0); POLYCHROMASIA 3+ (0-0); REACTIVE LYMPHOCYTES #M 0.4 10^3/ul (0.0-0.0); REACTIVE LYMPHOCYTES% (M) 14 % (0-0); SEG NEUT #M 0.9 10^3/ul (1.6-7.5); SEGMENTED NEUTROPHILS (M) % 27 % (39-77); SMUDGE%M 6 % (0-0)
[2017-05-25] MEDS: RANITIDINE 150 MG TAB PO ×2 (10:36→20:43)
[2017-05-25] MEDS: SERTRALINE 100 MG TAB PO (10:36)
[2017-05-25] MEDS: FAMOTIDINE 20 MG TAB PO ×2 (10:36→20:43)
[2017-05-25] MEDS: SILVER SULFADIAZINE 1% 25 GM CR TOP ×2 (10:37→20:49)
[2017-05-25] MEDS: NYSTATIN 30 GM POWDER BTL TOP ×2 (10:38→20:48)
[2017-05-25] MEDS: DOXYCYCLINE 100 MG TAB PO ×2 (10:41→20:42)
[2017-05-25] MEDS: LIDOCAINE 5% PATCH TD ×3 (10:57→10:58)
[2017-05-25] MEDS ORDERED: NITROGLYCERIN (SL) 0.4 MG TAB SL (11:30)
[2017-05-25 12:08] LABS: AMYLASE 46 U/L (11-123)
[2017-05-25 12:08] LABS: LIPASE 42 U/L (23-300)
[2017-05-25 12:19] LABS: TROPONIN-I 0.012 ng/ml (0.00-0.12)
[2017-05-25] MEDS: FUROSEMIDE 20 MG INJ IV ×2 (13:00→17:51)
[2017-05-25] MEDS: CHLORHEXIDINE GLUCONATE 15 ML UD CUP MT ×2 (14:00→22:01)
[2017-05-25] MEDS: METHYLPREDNISOLONE 40 MG INJ IV ×2 (14:02→22:01)
[2017-05-25] MEDS: CHOLECALCIFEROL 1,000 UNIT TAB PO (14:07)
[2017-05-25] MEDS: ASPIRIN (EC) 81 MG TAB PO (14:08)
[2017-05-25] MEDS: hydrOXYzine HCL 25 MG TAB PO ×2 (14:08→20:42)
[2017-05-25] MEDS: CYANOCOBALAMIN 1000 MCG INJ IM (14:09)
[2017-05-25] MEDS: AZITHROMYCIN 250 MG TAB PO (17:56)
[2017-05-25 18:21] LABS: TROPONIN-I < 0.012 ng/ml (0.00-0.12)
[2017-05-25] MEDS: ATORVASTATIN 20 MG TAB PO (20:43)
[2017-05-25] MEDS: traMADol 50 MG TAB PO (22:02)
[2017-05-25] MEDS: ZOLPIDEM 5 MG TAB PO (22:35)
[2017-05-26] MEDS: IPRATROPIUM (NEB) 0.5 MG/2.5 ML AMP INH ×6 (00:58→20:03)
[2017-05-26] MEDS: GUAIFENESIN 20 MG/ML 5ML CUP PO ×6 (01:00→21:00)
[2017-05-26] MEDS: METHYLPREDNISOLONE 40 MG INJ IV ×3 (06:47→21:12)
[2017-05-26 07:09] LABS: CHOL/HDL RATIO 4.1 RATIO; HDL CHOLESTEROL 28 mg/dl (33-92); LDL CHOLESTEROL,CALCULATED 73 mg/dl; TRIGLYCERIDES 79 mg/dl (0-149)
[2017-05-26 07:09] LABS: CHOLESTEROL 117 mg/dl (100-200)
[2017-05-26 07:10] LABS: ANION GAP 18 (8-16); BLOOD UREA NITROGEN 48 mg/dl (7-20); CALCIUM 9.1 mg/dl (8.4-10.2); CARBON DIOXIDE 25 mmol/L (21-31); CHLORIDE 99 mmol/L (97-110); GLUCOSE 139 mg/dl (70-220); MAGNESIUM 1.9 mg/dl (1.7-2.5); PHOSPHORUS 4.5 mg/dl (2.5-4.9); POTASSIUM 4.3 mmol/L (3.5-5.1); SODIUM 138 mmol/L (135-144)
[2017-05-26] MEDS: LIDOCAINE 5% PATCH TD ×3 (09:00→09:17)
[2017-05-26] MEDS: CHLORHEXIDINE GLUCONATE 15 ML UD CUP MT ×2 (09:13→21:11)
[2017-05-26] MEDS: NYSTATIN 30 GM POWDER BTL TOP ×2 (09:14→21:13)
[2017-05-26] MEDS: CHOLECALCIFEROL 1,000 UNIT TAB PO (09:14)
[2017-05-26] MEDS: SILVER SULFADIAZINE 1% 25 GM CR TOP ×2 (09:14→21:19)
[2017-05-26] MEDS: SENNA TAB PO (09:14)
[2017-05-26] MEDS: CYANOCOBALAMIN 1000 MCG INJ IM (09:15)
[2017-05-26] MEDS: hydrOXYzine HCL 25 MG TAB PO ×2 (09:15→21:00)
[2017-05-26] MEDS: traMADol 50 MG TAB PO ×2 (09:15→21:28)
[2017-05-26] MEDS: PANTOPRAZOLE (EC) 40 MG TAB PO ×2 (09:16→21:10)
[2017-05-26] MEDS: DOXYCYCLINE 100 MG TAB PO (09:16)
[2017-05-26] MEDS: OXYBUTYNIN 5 MG TAB PO ×3 (09:16→21:10)
[2017-05-26] MEDS: FUROSEMIDE 20 MG INJ IV (09:16)
[2017-05-26] MEDS: SERTRALINE 100 MG TAB PO (09:16)
[2017-05-26] MEDS: RANITIDINE 150 MG TAB PO ×2 (09:16→21:08)
[2017-05-26] MEDS: ASPIRIN (EC) 81 MG TAB PO (09:16)
[2017-05-26] MEDS: FAMOTIDINE 20 MG TAB PO (09:16)
[2017-05-26] MEDS: DOCUSATE SODIUM 100 MG CAP PO ×2 (09:16→21:10)
[2017-05-26] MEDS: SOD FERRIC GLUC COMPLX 125 MG in SOD CHLORIDE 0.9% 100 ML IVPB (16:03)
[2017-05-26] MEDS: AZITHROMYCIN 250 MG TAB PO (16:53)
[2017-05-26] MEDS: ATORVASTATIN 20 MG TAB PO (21:08)
[2017-05-26] MEDS: DICLOFENAC SODIUM 1% GEL 100 GM TUBE TP (21:12)
[2017-05-26] MEDS: ZOLPIDEM 5 MG TAB PO (21:27)
[2017-05-27] MEDS: IPRATROPIUM (NEB) 0.5 MG/2.5 ML AMP INH ×6 (00:57→22:04)
[2017-05-27] MEDS: GUAIFENESIN 20 MG/ML 5ML CUP PO ×6 (01:00→20:28)
[2017-05-27] MEDS: METHYLPREDNISOLONE 40 MG INJ IV ×3 (06:16→21:25)
[2017-05-27 06:34] LABS: ADD MAN DIFF? NO
[2017-05-27 06:37] LABS: WHITE BLOOD COUNT 4.1 10^3/ul (4.8-10.8)
[2017-05-27 06:37] LABS: HEMATOCRIT 38.3 % (37.0-47.0); HEMOGLOBIN 12.5 g/dl (12.0-16.0); LYMPHOCYTES # 0.8 10^3/ul (0.8-2.9); LYMPHOCYTES % 19.7 % (15.0-51.0); MEAN CORPUSCULAR HEMOGLOBIN 24.2 pg (29.0-33.0); MEAN CORPUSCULAR HGB CONC 32.6 g/dl (32.0-37.0); MEAN CORPUSCULAR VOLUME 74.1 fl (82.0-101.0); MEAN PLATELET VOLUME 10.2 fl (7.4-10.4); MONOCYTE # 0.4 10^3/ul (0.3-0.9); MONOCYTES % 10.8 % (0.0-11.0); NEUTROPHIL # 2.8 10^3/ul (1.6-7.5); PLATELET COUNT 200 10^3/UL (140-415); RED BLOOD COUNT 5.17 10^6/ul (4.20-5.40); RED CELL DISTRIBUTION WIDTH 17.3 % (11.5-14.5)
[2017-05-27 06:54] LABS: ANION GAP 20 (8-16); BLOOD UREA NITROGEN 62 mg/dl (7-20); CALCIUM 9.1 mg/dl (8.4-10.2); CARBON DIOXIDE 25 mmol/L (21-31); CHLORIDE 99 mmol/L (97-110); CREATININE 1.35 mg/dl (0.44-1.00); GLUCOSE 120 mg/dl (70-220); MAGNESIUM 1.9 mg/dl (1.7-2.5); PHOSPHORUS 4.9 mg/dl (2.5-4.9); POTASSIUM 4.4 mmol/L (3.5-5.1); SODIUM 140 mmol/L (135-144)
[2017-05-27] MEDS: hydrOXYzine HCL 25 MG TAB PO ×2 (09:00→20:42)
[2017-05-27] MEDS: CHLORHEXIDINE GLUCONATE 15 ML UD CUP MT ×2 (09:00→20:46)
[2017-05-27] MEDS: LIDOCAINE 5% PATCH TD ×3 (09:07→09:08)
[2017-05-27] MEDS: SERTRALINE 100 MG TAB PO (09:08)
[2017-05-27] MEDS: FAMOTIDINE 20 MG TAB PO (09:08)
[2017-05-27] MEDS: SILVER SULFADIAZINE 1% 25 GM CR TOP ×2 (09:08→21:00)
[2017-05-27] MEDS: CHOLECALCIFEROL 1,000 UNIT TAB PO (09:08)
[2017-05-27] MEDS: OXYBUTYNIN 5 MG TAB PO ×3 (09:09→20:28)
[2017-05-27] MEDS: DOCUSATE SODIUM 100 MG CAP PO ×2 (09:09→20:42)
[2017-05-27] MEDS: PANTOPRAZOLE (EC) 40 MG TAB PO ×2 (09:09→20:28)
[2017-05-27] MEDS: ASPIRIN (EC) 81 MG TAB PO (09:09)
[2017-05-27] MEDS: RANITIDINE 150 MG TAB PO ×2 (09:09→20:28)
[2017-05-27] MEDS: SENNA TAB PO (09:09)
[2017-05-27] MEDS: CYANOCOBALAMIN 1000 MCG INJ IM (09:10)
[2017-05-27] MEDS: FUROSEMIDE 20 MG TAB PO (09:11)
[2017-05-27] MEDS: NYSTATIN 30 GM POWDER BTL TOP ×2 (09:19→20:29)
[2017-05-27] MEDS ORDERED: AL HYDROX/MG HYDROX/SIMETH 30 ML CUP PO (15:30)
[2017-05-27] MEDS: SOD FERRIC GLUC COMPLX 125 MG in SOD CHLORIDE 0.9% 100 ML IVPB (18:07)
[2017-05-27] MEDS: ATORVASTATIN 20 MG TAB PO (20:28)
[2017-05-27] MEDS: AZITHROMYCIN 250 MG TAB PO (20:32)
[2017-05-27] MEDS: ZOLPIDEM 5 MG TAB PO (21:49)
[2017-05-28] MEDS: IPRATROPIUM (NEB) 0.5 MG/2.5 ML AMP INH ×6 (01:00→21:23)
[2017-05-28] MEDS: GUAIFENESIN 20 MG/ML 5ML CUP PO ×6 (01:00→20:12)
[2017-05-28] MEDS: METHYLPREDNISOLONE 40 MG INJ IV ×3 (05:39→20:12)
[2017-05-28 06:52] LABS: ADD MAN DIFF? NO
[2017-05-28 06:59] LABS: WHITE BLOOD COUNT 5.5 10^3/ul (4.8-10.8)
[2017-05-28 06:59] LABS: BASOPHILS % 0.2 % (0.0-2.0); HEMATOCRIT 38.4 % (37.0-47.0); HEMOGLOBIN 12.4 g/dl (12.0-16.0); LYMPHOCYTES # 0.7 10^3/ul (0.8-2.9); LYMPHOCYTES % 13.4 % (15.0-51.0); MEAN CORPUSCULAR HGB CONC 32.3 g/dl (32.0-37.0); MEAN CORPUSCULAR VOLUME 74.4 fl (82.0-101.0); MEAN PLATELET VOLUME 9.9 fl (7.4-10.4); MONOCYTE # 0.7 10^3/ul (0.3-0.9); NEUTROPHILS % 72.9 % (39.0-77.0); PLATELET COUNT 211 10^3/UL (140-415); RED BLOOD COUNT 5.16 10^6/ul (4.20-5.40); RED CELL DISTRIBUTION WIDTH 16.9 % (11.5-14.5)
[2017-05-28 07:20] LABS: ANION GAP 22 (8-16); BLOOD UREA NITROGEN 60 mg/dl (7-20); CALCIUM 9.3 mg/dl (8.4-10.2); CARBON DIOXIDE 25 mmol/L (21-31); CHLORIDE 100 mmol/L (97-110); CREATININE 1.21 mg/dl (0.44-1.00); GLUCOSE 105 mg/dl (70-220); PHOSPHORUS 4.2 mg/dl (2.5-4.9); POTASSIUM 4.5 mmol/L (3.5-5.1); SODIUM 142 mmol/L (135-144)
[2017-05-28] MEDS: CHLORHEXIDINE GLUCONATE 15 ML UD CUP MT ×2 (09:00→20:13)
[2017-05-28] MEDS: SENNA TAB PO (09:00)
[2017-05-28] MEDS: SILVER SULFADIAZINE 1% 25 GM CR TOP ×2 (09:00→20:12)
[2017-05-28] MEDS: DOCUSATE SODIUM 100 MG CAP PO ×2 (09:00→20:13)
[2017-05-28] MEDS: hydrOXYzine HCL 25 MG TAB PO (09:00)
[2017-05-28] MEDS: NYSTATIN 30 GM POWDER BTL TOP ×2 (09:00→20:14)
[2017-05-28] MEDS: AMLODIPINE 10 MG TAB PO (09:16)
[2017-05-28] MEDS: LIDOCAINE 5% PATCH TD ×3 (10:18→10:19)
[2017-05-28] MEDS: CYANOCOBALAMIN 1000 MCG INJ IM (10:18)
[2017-05-28] MEDS: CHOLECALCIFEROL 1,000 UNIT TAB PO (10:18)
[2017-05-28] MEDS: FAMOTIDINE 20 MG TAB PO (10:19)
[2017-05-28] MEDS: ASPIRIN (EC) 81 MG TAB PO (10:19)
[2017-05-28] MEDS: PANTOPRAZOLE (EC) 40 MG TAB PO ×2 (10:19→20:12)
[2017-05-28] MEDS: RANITIDINE 150 MG TAB PO ×2 (10:19→20:12)
[2017-05-28] MEDS: SERTRALINE 100 MG TAB PO (10:19)
[2017-05-28] MEDS: OXYBUTYNIN 5 MG TAB PO ×3 (10:19→20:13)
[2017-05-28] MEDS: SOD FERRIC GLUC COMPLX 125 MG in SOD CHLORIDE 0.9% 100 ML IVPB (17:14)
[2017-05-28] MEDS: ATORVASTATIN 20 MG TAB PO (20:12)
[2017-05-28] MEDS: ZOLPIDEM 5 MG TAB PO (20:13)
[2017-05-28] MEDS: traMADol 50 MG TAB PO (20:21)
[2017-05-29] MEDS: IPRATROPIUM (NEB) 0.5 MG/2.5 ML AMP INH ×6 (00:26→21:30)
[2017-05-29] MEDS: GUAIFENESIN 20 MG/ML 5ML CUP PO ×6 (01:00→21:00)
[2017-05-29] MEDS: hydrALAzine 20 MG INJ IV (02:45)
[2017-05-29] MEDS: METHYLPREDNISOLONE 40 MG INJ IV ×3 (06:27→21:05)
[2017-05-29 08:07] LABS: ANION GAP 19 (8-16); BLOOD UREA NITROGEN 51 mg/dl (7-20); CALCIUM 9.4 mg/dl (8.4-10.2); CARBON DIOXIDE 26 mmol/L (21-31); CHLORIDE 103 mmol/L (97-110); CREATININE 1.06 mg/dl (0.44-1.00); GLUCOSE 115 mg/dl (70-220); MAGNESIUM 2.2 mg/dl (1.7-2.5); PHOSPHORUS 3.4 mg/dl (2.5-4.9); POTASSIUM 4.5 mmol/L (3.5-5.1); SODIUM 143 mmol/L (135-144)
[2017-05-29] MEDS: OXYBUTYNIN 5 MG TAB PO ×3 (09:00→21:07)
[2017-05-29] MEDS: NYSTATIN 30 GM POWDER BTL TOP ×2 (09:00→21:00)
[2017-05-29] MEDS: LIDOCAINE 5% PATCH TD ×3 (09:00)
[2017-05-29] MEDS: CYANOCOBALAMIN 1000 MCG INJ IM ×2 (09:00→15:56)
[2017-05-29] MEDS: CHLORHEXIDINE GLUCONATE 15 ML UD CUP MT ×2 (09:00→21:00)
[2017-05-29] MEDS: DOCUSATE SODIUM 100 MG CAP PO ×2 (09:00→21:00)
[2017-05-29] MEDS: SILVER SULFADIAZINE 1% 25 GM CR TOP ×2 (09:00→21:00)
[2017-05-29] MEDS: SENNA TAB PO (09:00)
[2017-05-29] MEDS: FAMOTIDINE 20 MG TAB PO (09:00)
[2017-05-29] MEDS: PANTOPRAZOLE (EC) 40 MG TAB PO ×2 (09:00→17:42)
[2017-05-29] MEDS: CHOLECALCIFEROL 1,000 UNIT TAB PO (09:00)
[2017-05-29] MEDS: AMLODIPINE 10 MG TAB PO (09:00)
[2017-05-29] MEDS: RANITIDINE 150 MG TAB PO ×2 (09:00→21:07)
[2017-05-29] MEDS: SERTRALINE 100 MG TAB PO (09:00)
[2017-05-29] MEDS: ASPIRIN (EC) 81 MG TAB PO (09:00)
[2017-05-29] MEDS ORDERED: LIDOCAINE 100 MG SYRINGE (13:47)
[2017-05-29] MEDS ORDERED: PROPOFOL 40 ML (13:47)
[2017-05-29] MEDS: SOD FERRIC GLUC COMPLX 125 MG in SOD CHLORIDE 0.9% 100 ML IVPB (17:41)
[2017-05-29] MEDS: ATORVASTATIN 20 MG TAB PO (21:00)
[2017-05-29] MEDS: ZOLPIDEM 5 MG TAB PO (22:47)
[2017-05-29] MEDS ORDERED: GUAIFENESIN/CODEINE 5ML CUP PO (23:30)
[2017-05-30] MEDS: GUAIFENESIN 20 MG/ML 5ML CUP PO ×6 (01:00→21:00)
[2017-05-30] MEDS: IPRATROPIUM (NEB) 0.5 MG/2.5 ML AMP INH ×6 (01:00→21:06)
[2017-05-30] MEDS: PANTOPRAZOLE (EC) 40 MG TAB PO ×2 (06:00→17:00)
[2017-05-30] MEDS: METHYLPREDNISOLONE 40 MG INJ IV ×3 (06:58→22:00)
[2017-05-30 07:05] LABS: ANION GAP 18 (8-16); BLOOD UREA NITROGEN 46 mg/dl (7-20); CALCIUM 9.3 mg/dl (8.4-10.2); CARBON DIOXIDE 24 mmol/L (21-31); CHLORIDE 107 mmol/L (97-110); CREATININE 0.91 mg/dl (0.44-1.00); GLUCOSE 113 mg/dl (70-220); MAGNESIUM 2.2 mg/dl (1.7-2.5); PHOSPHORUS 3.3 mg/dl (2.5-4.9); POTASSIUM 4.5 mmol/L (3.5-5.1); SODIUM 144 mmol/L (135-144)
[2017-05-30] MEDS: AMLODIPINE 10 MG TAB PO (08:00)
[2017-05-30] MEDS: SENNA TAB PO (09:00)
[2017-05-30] MEDS: CYANOCOBALAMIN 1000 MCG INJ IM (09:00)
[2017-05-30] MEDS: SILVER SULFADIAZINE 1% 25 GM CR TOP ×2 (09:00→21:00)
[2017-05-30] MEDS: NYSTATIN 30 GM POWDER BTL TOP ×2 (09:00→21:00)
[2017-05-30] MEDS: CHLORHEXIDINE GLUCONATE 15 ML UD CUP MT ×2 (09:00→21:00)
[2017-05-30] MEDS: DOCUSATE SODIUM 100 MG CAP PO ×2 (09:00→21:50)
[2017-05-30] MEDS: ASPIRIN (EC) 81 MG TAB PO (09:02)
[2017-05-30] MEDS: OXYBUTYNIN 5 MG TAB PO ×3 (09:02→21:50)
[2017-05-30] MEDS: FAMOTIDINE 20 MG TAB PO (09:02)
[2017-05-30] MEDS: SERTRALINE 100 MG TAB PO (09:02)
[2017-05-30] MEDS: LIDOCAINE 5% PATCH TD ×3 (09:03)
[2017-05-30] MEDS: RANITIDINE 150 MG TAB PO ×2 (09:03→21:50)
[2017-05-30] MEDS: CHOLECALCIFEROL 1,000 UNIT TAB PO (09:03)
[2017-05-30] MEDS: SOD FERRIC GLUC COMPLX 125 MG in SOD CHLORIDE 0.9% 100 ML IVPB (17:01)
[2017-05-30] MEDS: DIPHENHYD/MYLANTA/LIDO (PO SYG) PO (21:00)
[2017-05-30] MEDS: ATORVASTATIN 20 MG TAB PO (21:00)
[2017-05-30] MEDS: ZOLPIDEM 5 MG TAB PO (22:17)
[2017-05-31] MEDS: PHENOL 1.4% SOLN 180 ML BTL MT ×2 (00:15→09:20)
[2017-05-31] MEDS: GUAIFENESIN 20 MG/ML 5ML CUP PO ×6 (01:00→20:38)
[2017-05-31] MEDS: DIPHENHYD/MYLANTA/LIDO (PO SYG) PO ×6 (01:00→21:39)
[2017-05-31] MEDS: IPRATROPIUM (NEB) 0.5 MG/2.5 ML AMP INH ×6 (01:00→20:58)
[2017-05-31] MEDS: METHYLPREDNISOLONE 40 MG INJ IV ×3 (06:23→21:39)
[2017-05-31] MEDS: PANTOPRAZOLE (EC) 40 MG TAB PO ×2 (06:23→17:59)
[2017-05-31] MEDS: SILVER SULFADIAZINE 1% 25 GM CR TOP ×2 (09:00→20:49)
[2017-05-31] MEDS: CHOLECALCIFEROL 1,000 UNIT TAB PO (09:00)
[2017-05-31] MEDS: SENNA TAB PO (09:00)
[2017-05-31] MEDS: DOCUSATE SODIUM 100 MG CAP PO ×2 (09:00→20:45)
[2017-05-31] MEDS: NYSTATIN 30 GM POWDER BTL TOP ×2 (09:00→22:42)
[2017-05-31] MEDS: FAMOTIDINE 20 MG TAB PO (09:20)
[2017-05-31] MEDS: OXYBUTYNIN 5 MG TAB PO ×3 (09:20→20:49)
[2017-05-31] MEDS: SERTRALINE 100 MG TAB PO (09:20)
[2017-05-31] MEDS: AMLODIPINE 10 MG TAB PO (09:20)
[2017-05-31] MEDS: CHLORHEXIDINE GLUCONATE 15 ML UD CUP MT ×2 (09:20→20:49)
[2017-05-31] MEDS: RANITIDINE 150 MG TAB PO ×2 (09:20→20:37)
[2017-05-31] MEDS: CYANOCOBALAMIN 1000 MCG INJ IM (09:21)
[2017-05-31] MEDS: ASPIRIN (EC) 81 MG TAB PO (09:21)
[2017-05-31] MEDS: LIDOCAINE 5% PATCH TD ×3 (09:27)
[2017-05-31] MEDS: DICLOFENAC SODIUM 1% GEL 100 GM TUBE TP (16:53)
[2017-05-31] MEDS: SOD FERRIC GLUC COMPLX 125 MG in SOD CHLORIDE 0.9% 100 ML IVPB (18:30)
[2017-05-31] MEDS: VALSARTAN 80 MG TAB PO (20:40)
[2017-05-31] MEDS: ATORVASTATIN 20 MG TAB PO (20:45)
[2017-05-31] MEDS: ZOLPIDEM 5 MG TAB PO (21:39)
[2017-06-01] MEDS: DIPHENHYD/MYLANTA/LIDO (PO SYG) PO ×6 (01:00→21:10)
[2017-06-01] MEDS: GUAIFENESIN 20 MG/ML 5ML CUP PO ×7 (01:00→21:07)
[2017-06-01] MEDS: IPRATROPIUM (NEB) 0.5 MG/2.5 ML AMP INH ×6 (01:00→22:13)
[2017-06-01] MEDS: PANTOPRAZOLE (EC) 40 MG TAB PO ×2 (06:47→17:25)
[2017-06-01] MEDS: METHYLPREDNISOLONE 40 MG INJ IV ×3 (06:48→21:07)
[2017-06-01 07:55] LABS: ADD MAN DIFF? NO
[2017-06-01 08:04] LABS: BASOPHIL # 0.1 10^3/ul (0.0-0.1); BASOPHILS % 0.5 % (0.0-2.0); EOSINOPHILS % 0.1 % (0.0-7.0); HEMOGLOBIN 12.3 g/dl (12.0-16.0); LYMPHOCYTES # 1.1 10^3/ul (0.8-2.9); LYMPHOCYTES % 10.7 % (15.0-51.0); MEAN CORPUSCULAR HEMOGLOBIN 24.3 pg (29.0-33.0); MEAN CORPUSCULAR HGB CONC 32.4 g/dl (32.0-37.0); MEAN CORPUSCULAR VOLUME 75.1 fl (82.0-101.0); MEAN PLATELET VOLUME 9.4 fl (7.4-10.4); MONOCYTE # 0.9 10^3/ul (0.3-0.9); MONOCYTES % 9.1 % (0.0-11.0); PLATELET COUNT 221 10^3/UL (140-415); RED BLOOD COUNT 5.06 10^6/ul (4.20-5.40); RED CELL DISTRIBUTION WIDTH 17.2 % (11.5-14.5)
[2017-06-01 08:04] LABS: WHITE BLOOD COUNT 10.3 10^3/ul (4.8-10.8)
[2017-06-01 08:21] LABS: ANION GAP 18 (8-16); BLOOD UREA NITROGEN 31 mg/dl (7-20); CALCIUM 9.3 mg/dl (8.4-10.2); CARBON DIOXIDE 24 mmol/L (21-31); CHLORIDE 105 mmol/L (97-110); CREATININE 0.88 mg/dl (0.44-1.00); GLUCOSE 93 mg/dl (70-220); MAGNESIUM 1.8 mg/dl (1.7-2.5); PHOSPHORUS 3.3 mg/dl (2.5-4.9); POTASSIUM 4.2 mmol/L (3.5-5.1); SODIUM 143 mmol/L (135-144)
[2017-06-01] MEDS: CHLORHEXIDINE GLUCONATE 15 ML UD CUP MT ×3 (09:00→21:07)
[2017-06-01] MEDS: RANITIDINE 150 MG TAB PO ×3 (09:00→21:06)
[2017-06-01] MEDS: CHOLECALCIFEROL 1,000 UNIT TAB PO ×2 (09:00→09:55)
[2017-06-01] MEDS: SILVER SULFADIAZINE 1% 25 GM CR TOP ×2 (09:00→21:08)
[2017-06-01] MEDS: FAMOTIDINE 20 MG TAB PO ×2 (09:00→09:55)
[2017-06-01] MEDS: SENNA TAB PO (09:00)
[2017-06-01] MEDS: DOCUSATE SODIUM 100 MG CAP PO ×2 (09:00→09:54)
[2017-06-01] MEDS: NYSTATIN 30 GM POWDER BTL TOP ×3 (09:00→21:00)
[2017-06-01] MEDS: LIDOCAINE 5% PATCH TD ×5 (09:00→10:25)
[2017-06-01] MEDS: CYANOCOBALAMIN 1000 MCG INJ IM (09:53)
[2017-06-01] MEDS: ASPIRIN (EC) 81 MG TAB PO (09:55)
[2017-06-01] MEDS: AMLODIPINE 10 MG TAB PO (09:55)
[2017-06-01] MEDS: OXYBUTYNIN 5 MG TAB PO ×3 (09:55→21:05)
[2017-06-01] MEDS: SERTRALINE 100 MG TAB PO (09:56)
[2017-06-01] MEDS: FLUCONAZOLE 100 MG TAB PO (12:29)
[2017-06-01] MEDS: NYSTATIN SUSP 5 ML CUP PO ×3 (12:31→21:07)
[2017-06-01] MEDS: SOD FERRIC GLUC COMPLX 125 MG in SOD CHLORIDE 0.9% 100 ML IVPB (17:24)
[2017-06-01] MEDS: ATORVASTATIN 20 MG TAB PO (21:00)
[2017-06-01] MEDS: VALSARTAN 80 MG TAB PO (21:15)
[2017-06-01] MEDS: DEXTROSE 5%-0.45% NACL 1,000 ML IV (21:27)
[2017-06-01] MEDS: ZOLPIDEM 5 MG TAB PO (22:40)
[2017-06-02] MEDS: IPRATROPIUM (NEB) 0.5 MG/2.5 ML AMP INH ×6 (00:04→20:38)
[2017-06-02] MEDS: DIPHENHYD/MYLANTA/LIDO (PO SYG) PO ×6 (01:00→21:28)
[2017-06-02] MEDS: GUAIFENESIN 20 MG/ML 5ML CUP PO ×6 (01:00→21:24)
[2017-06-02] MEDS: PANTOPRAZOLE (EC) 40 MG TAB PO ×2 (06:05→17:55)
[2017-06-02] MEDS: METHYLPREDNISOLONE 40 MG INJ IV ×3 (06:05→21:26)
[2017-06-02] MEDS: LIDOCAINE 5% PATCH TD ×3 (09:00→09:18)
[2017-06-02] MEDS: CYANOCOBALAMIN 1000 MCG INJ IM (09:00)
[2017-06-02] MEDS: NYSTATIN 30 GM POWDER BTL TOP ×2 (09:17→14:24)
[2017-06-02] MEDS: SILVER SULFADIAZINE 1% 25 GM CR TOP ×2 (09:20→21:25)
[2017-06-02] MEDS: traMADol 50 MG TAB PO ×3 (09:21→15:40)
[2017-06-02] MEDS: AMLODIPINE 10 MG TAB PO (09:37)
[2017-06-02] MEDS: FAMOTIDINE 20 MG TAB PO (09:37)
[2017-06-02] MEDS: CHOLECALCIFEROL 1,000 UNIT TAB PO (09:37)
[2017-06-02] MEDS: ASPIRIN (EC) 81 MG TAB PO (09:37)
[2017-06-02] MEDS: OXYBUTYNIN 5 MG TAB PO ×3 (09:38→21:30)
[2017-06-02] MEDS: SERTRALINE 100 MG TAB PO (09:38)
[2017-06-02] MEDS: NYSTATIN SUSP 5 ML CUP PO ×4 (09:38→21:24)
[2017-06-02] MEDS: CHLORHEXIDINE GLUCONATE 15 ML UD CUP MT ×2 (09:38→21:24)
[2017-06-02] MEDS: RANITIDINE 150 MG TAB PO ×2 (09:39→21:25)
[2017-06-02] MEDS: FLUCONAZOLE 200 MG/NS (PMX) 100 ML IVPB (14:24)
[2017-06-02] MEDS: SOD FERRIC GLUC COMPLX 125 MG in SOD CHLORIDE 0.9% 100 ML IVPB (15:57)
[2017-06-02] MEDS: CEPASTAT LOZENGE MT (16:04)
[2017-06-02] MEDS: DEXTROSE 5%-0.45% NACL 1,000 ML IV (17:59)
[2017-06-02] MEDS: ATORVASTATIN 20 MG TAB PO (21:25)
[2017-06-02] MEDS: VALSARTAN 80 MG TAB PO (21:26)
[2017-06-02] MEDS: ZOLPIDEM 5 MG TAB PO (22:05)
[2017-06-03] MEDS: IPRATROPIUM (NEB) 0.5 MG/2.5 ML AMP INH ×6 (00:28→20:48)
[2017-06-03] MEDS: DIPHENHYD/MYLANTA/LIDO (PO SYG) PO ×6 (01:00→22:01)
[2017-06-03] MEDS: GUAIFENESIN 20 MG/ML 5ML CUP PO ×7 (01:00→22:01)
[2017-06-03] MEDS: PANTOPRAZOLE (EC) 40 MG TAB PO ×2 (06:32→17:35)
[2017-06-03] MEDS: METHYLPREDNISOLONE 40 MG INJ IV ×3 (06:32→22:01)
[2017-06-03] MEDS: LACTULOSE 30ML CUP PO (06:48)
[2017-06-03 07:19] LABS: ABNORMAL IP MESSAGE 1; HEMATOCRIT 36.2 % (37.0-47.0); HEMOGLOBIN 11.7 g/dl (12.0-16.0); MEAN CORPUSCULAR HEMOGLOBIN 24.6 pg (29.0-33.0); MEAN CORPUSCULAR HGB CONC 32.3 g/dl (32.0-37.0); MEAN CORPUSCULAR VOLUME 76.2 fl (82.0-101.0); MEAN PLATELET VOLUME 9.8 fl (7.4-10.4); PLATELET COUNT 221 10^3/UL (140-415); RED BLOOD COUNT 4.75 10^6/ul (4.20-5.40); RED CELL DISTRIBUTION WIDTH 17.2 % (11.5-14.5)
[2017-06-03 07:19] LABS: WHITE BLOOD COUNT 8.8 10^3/ul (4.8-10.8)
[2017-06-03 07:27] LABS: POSITIVE DIFF @See below
[2017-06-03 07:28] LABS: ADD MAN DIFF? YES
[2017-06-03 07:50] LABS: ANION GAP 18 (8-16); BLOOD UREA NITROGEN 23 mg/dl (7-20); CARBON DIOXIDE 24 mmol/L (21-31); CHLORIDE 105 mmol/L (97-110); CREATININE 0.89 mg/dl (0.44-1.00); GLUCOSE 221 mg/dl (70-220); MAGNESIUM 1.7 mg/dl (1.7-2.5); PHOSPHORUS 4.1 mg/dl (2.5-4.9); POTASSIUM 4.4 mmol/L (3.5-5.1); SODIUM 143 mmol/L (135-144)
[2017-06-03] MEDS: LIDOCAINE 5% PATCH TD ×4 (09:00→10:19)
[2017-06-03 09:40] LABS: ANISOCYTOSIS 2+ (0-0); BAND NEUTROPHILS #M 0.1 10^3/ul (0.0-0.6); BAND NEUTROPHILS % (M) 2 % (0-4); GIANT THROMBO% (M) 2 % (0-0); LYMPHOCYTES #M 0.4 10^3/ul (0.8-2.9); LYMPHOCYTES % (M) 5 % (15-51); METAMYELOCYTES %M 1 % (0-0); MICROCYTOSIS 2+ (0-0); MONOCYTE #M 0.5 10^3/ul (0.3-0.9); MONOCYTES % (M) 6 % (0-11); MYELOCYTES #M 0.1 10^3/ul (0.0-0.0); MYELOCYTES % (M) 2 % (0-0); PLATELET ESTIMATE NORMAL; POIKILOCYTOSIS 2+ (0-0); POLYCHROMASIA 2+ (0-0); REACTIVE LYMPHOCYTES% (M) 1 % (0-0); SEG NEUT #M 7.3 10^3/ul (1.6-7.5); SEGMENTED NEUTROPHILS (M) % 83 % (39-77); SMUDGE%M 5 % (0-0)
[2017-06-03] MEDS: NYSTATIN SUSP 5 ML CUP PO ×5 (10:14→22:01)
[2017-06-03] MEDS: RANITIDINE 150 MG TAB PO ×2 (10:15→22:02)
[2017-06-03] MEDS: CYANOCOBALAMIN 1000 MCG INJ IM (10:15)
[2017-06-03] MEDS: SERTRALINE 100 MG TAB PO (10:15)
[2017-06-03] MEDS: CHOLECALCIFEROL 1,000 UNIT TAB PO (10:15)
[2017-06-03] MEDS: CHLORHEXIDINE GLUCONATE 15 ML UD CUP MT ×2 (10:15→21:00)
[2017-06-03] MEDS: ASPIRIN (EC) 81 MG TAB PO (10:16)
[2017-06-03] MEDS: OXYBUTYNIN 5 MG TAB PO ×3 (10:16→22:02)
[2017-06-03] MEDS: FAMOTIDINE 20 MG TAB PO (10:16)
[2017-06-03] MEDS: AMLODIPINE 10 MG TAB PO (10:16)
[2017-06-03] MEDS: SILVER SULFADIAZINE 1% 25 GM CR TOP ×2 (10:19→22:03)
[2017-06-03] MEDS: NYSTATIN 30 GM POWDER BTL TOP ×2 (10:20→22:03)
[2017-06-03] MEDS: FLUCONAZOLE 200 MG/NS (PMX) 100 ML IVPB (10:40)
[2017-06-03] MEDS: DEXTROSE 5%-0.45% NACL 1,000 ML IV ×2 (12:27→23:43)
[2017-06-03] MEDS: SOD FERRIC GLUC COMPLX 125 MG in SOD CHLORIDE 0.9% 100 ML IVPB (16:22)
[2017-06-03] MEDS: DOCUSATE SODIUM 100 MG CAP PO (22:02)
[2017-06-03] MEDS: VALSARTAN 80 MG TAB PO (22:02)
[2017-06-03] MEDS: ATORVASTATIN 20 MG TAB PO (22:04)
[2017-06-03] MEDS: ZOLPIDEM 5 MG TAB PO (22:13)
[2017-06-04] MEDS: GUAIFENESIN 20 MG/ML 5ML CUP PO ×7 (01:00→21:00)
[2017-06-04] MEDS: IPRATROPIUM (NEB) 0.5 MG/2.5 ML AMP INH ×6 (01:00→20:22)
[2017-06-04] MEDS: DIPHENHYD/MYLANTA/LIDO (PO SYG) PO ×6 (01:00→21:50)
[2017-06-04] MEDS: PANTOPRAZOLE (EC) 40 MG TAB PO ×2 (06:06→17:31)
[2017-06-04] MEDS: METHYLPREDNISOLONE 40 MG INJ IV ×3 (06:06→21:49)
[2017-06-04] MEDS: LIDOCAINE 5% PATCH TD ×3 (09:00→09:35)
[2017-06-04] MEDS: CHLORHEXIDINE GLUCONATE 15 ML UD CUP MT ×2 (09:00→21:00)
[2017-06-04] MEDS: NYSTATIN SUSP 5 ML CUP PO ×4 (09:23→21:00)
[2017-06-04] MEDS: SILVER SULFADIAZINE 1% 25 GM CR TOP ×2 (09:24→21:00)
[2017-06-04] MEDS: OXYBUTYNIN 5 MG TAB PO ×3 (09:24→21:51)
[2017-06-04] MEDS: SENNA TAB PO (09:25)
[2017-06-04] MEDS: CYANOCOBALAMIN 1000 MCG INJ IM (09:25)
[2017-06-04] MEDS: SERTRALINE 100 MG TAB PO (09:25)
[2017-06-04] MEDS: ASPIRIN (EC) 81 MG TAB PO (09:25)
[2017-06-04] MEDS: RANITIDINE 150 MG TAB PO ×2 (09:25→21:51)
[2017-06-04] MEDS: AMLODIPINE 10 MG TAB PO (09:25)
[2017-06-04] MEDS: FAMOTIDINE 20 MG TAB PO (09:25)
[2017-06-04] MEDS: CHOLECALCIFEROL 1,000 UNIT TAB PO (09:25)
[2017-06-04] MEDS: DOCUSATE SODIUM 100 MG CAP PO ×2 (09:25→21:53)
[2017-06-04] MEDS: PHENOL 1.4% SOLN 180 ML BTL MT (09:36)
[2017-06-04] MEDS: NYSTATIN 30 GM POWDER BTL TOP ×2 (09:36→21:00)
[2017-06-04] MEDS: FLUCONAZOLE 200 MG/NS (PMX) 100 ML IVPB (11:59)
[2017-06-04] MEDS: SOD FERRIC GLUC COMPLX 125 MG in SOD CHLORIDE 0.9% 100 ML IVPB (17:31)
[2017-06-04] MEDS: ATORVASTATIN 20 MG TAB PO (21:00)
[2017-06-04] MEDS: VALSARTAN 80 MG TAB PO (21:53)
[2017-06-04] MEDS: ZOLPIDEM 5 MG TAB PO (21:57)
[2017-06-05] MEDS: IPRATROPIUM (NEB) 0.5 MG/2.5 ML AMP INH ×6 (00:37→21:48)
[2017-06-05] MEDS: GUAIFENESIN 20 MG/ML 5ML CUP PO ×6 (01:00→21:00)
[2017-06-05] MEDS: DIPHENHYD/MYLANTA/LIDO (PO SYG) PO ×6 (01:00→22:17)
[2017-06-05] MEDS: PANTOPRAZOLE (EC) 40 MG TAB PO ×2 (05:59→17:13)
[2017-06-05] MEDS: DEXTROSE 5%-0.45% NACL 1,000 ML IV (06:00)
[2017-06-05] MEDS: METHYLPREDNISOLONE 40 MG INJ IV ×2 (06:04→14:00)
[2017-06-05] MEDS: LIDOCAINE 5% PATCH TD ×3 (09:00→09:49)
[2017-06-05] MEDS: FAMOTIDINE 20 MG TAB PO (09:46)
[2017-06-05] MEDS: RANITIDINE 150 MG TAB PO ×2 (09:46→21:00)
[2017-06-05] MEDS: SENNA TAB PO (09:46)
[2017-06-05] MEDS: CHOLECALCIFEROL 1,000 UNIT TAB PO (09:46)
[2017-06-05] MEDS: DOCUSATE SODIUM 100 MG CAP PO ×2 (09:46→22:17)
[2017-06-05] MEDS: ASPIRIN (EC) 81 MG TAB PO (09:46)
[2017-06-05] MEDS: SERTRALINE 100 MG TAB PO (09:46)
[2017-06-05] MEDS: OXYBUTYNIN 5 MG TAB PO ×3 (09:46→21:00)
[2017-06-05] MEDS: AMLODIPINE 10 MG TAB PO (09:47)
[2017-06-05] MEDS: NYSTATIN SUSP 5 ML CUP PO ×4 (09:47→21:00)
[2017-06-05] MEDS: CHLORHEXIDINE GLUCONATE 15 ML UD CUP MT ×2 (09:47→21:00)
[2017-06-05] MEDS: CYANOCOBALAMIN 1000 MCG INJ IM (09:47)
[2017-06-05] MEDS: SILVER SULFADIAZINE 1% 25 GM CR TOP ×2 (09:50→21:00)
[2017-06-05] MEDS: NYSTATIN 30 GM POWDER BTL TOP ×2 (09:50→21:00)
[2017-06-05] MEDS: FLUCONAZOLE 200 MG/NS (PMX) 100 ML IVPB (11:00)
[2017-06-05] MEDS: FLUCONAZOLE 200 MG TAB PO ×2 (13:00→17:13)
[2017-06-05] MEDS: ATORVASTATIN 20 MG TAB PO (21:00)
[2017-06-05] MEDS: ZOLPIDEM 5 MG TAB PO (22:17)
[2017-06-05] MEDS: VALSARTAN 80 MG TAB PO (22:17)
[2017-06-06] MEDS: IPRATROPIUM (NEB) 0.5 MG/2.5 ML AMP INH ×6 (01:00→20:32)
[2017-06-06] MEDS: GUAIFENESIN 20 MG/ML 5ML CUP PO ×6 (01:00→21:00)
[2017-06-06] MEDS: DIPHENHYD/MYLANTA/LIDO (PO SYG) PO ×6 (01:00→21:00)
[2017-06-06] MEDS: PANTOPRAZOLE (EC) 40 MG TAB PO ×2 (06:00→17:29)
[2017-06-06 07:15] LABS: ADD MAN DIFF? NO
[2017-06-06 07:57] LABS: ANION GAP 18 (8-16); BLOOD UREA NITROGEN 27 mg/dl (7-20); CALCIUM 9.1 mg/dl (8.4-10.2); CARBON DIOXIDE 24 mmol/L (21-31); CHLORIDE 106 mmol/L (97-110); CREATININE 1.06 mg/dl (0.44-1.00); GLUCOSE 96 mg/dl (70-220); MAGNESIUM 1.6 mg/dl (1.7-2.5); PHOSPHORUS 3.5 mg/dl (2.5-4.9); POTASSIUM 4.4 mmol/L (3.5-5.1); SODIUM 144 mmol/L (135-144)
[2017-06-06 08:16] LABS: WHITE BLOOD COUNT 14.3 10^3/ul (4.8-10.8)
[2017-06-06 08:16] LABS: ABNORMAL IP MESSAGE 1; BASOPHIL # 0.1 10^3/ul (0.0-0.1); BASOPHILS % 0.4 % (0.0-2.0); EOSINOPHILS % 0.2 % (0.0-7.0); HEMATOCRIT 37.1 % (37.0-47.0); HEMOGLOBIN 11.8 g/dl (12.0-16.0); LYMPHOCYTES # 1.9 10^3/ul (0.8-2.9); LYMPHOCYTES % 13.5 % (15.0-51.0); MEAN CORPUSCULAR HEMOGLOBIN 24.1 pg (29.0-33.0); MEAN CORPUSCULAR HGB CONC 31.8 g/dl (32.0-37.0); MEAN CORPUSCULAR VOLUME 75.9 fl (82.0-101.0); MEAN PLATELET VOLUME 9.9 fl (7.4-10.4); MONOCYTE # 1.4 10^3/ul (0.3-0.9); MONOCYTES % 9.6 % (0.0-11.0); NEUTROPHILS % 69.7 % (39.0-77.0); PLATELET COUNT 241 10^3/UL (140-415); RED BLOOD COUNT 4.89 10^6/ul (4.20-5.40)
[2017-06-06 08:18] LABS: POSITIVE DIFF @See below
[2017-06-06] MEDS: NYSTATIN SUSP 5 ML CUP PO ×4 (09:00→21:00)
[2017-06-06] MEDS: LIDOCAINE 5% PATCH TD ×3 (09:00→09:16)
[2017-06-06] MEDS: CHLORHEXIDINE GLUCONATE 15 ML UD CUP MT ×2 (09:00→21:13)
[2017-06-06] MEDS: NYSTATIN 30 GM POWDER BTL TOP ×2 (09:00→21:17)
[2017-06-06] MEDS: SILVER SULFADIAZINE 1% 25 GM CR TOP ×2 (09:00→21:17)
[2017-06-06] MEDS: FAMOTIDINE 20 MG TAB PO (09:00)
[2017-06-06] MEDS: CYANOCOBALAMIN 1000 MCG INJ IM (09:00)
[2017-06-06] MEDS: AMLODIPINE 10 MG TAB PO (09:13)
[2017-06-06] MEDS: RANITIDINE 150 MG TAB PO ×2 (09:13→21:13)
[2017-06-06] MEDS: CHOLECALCIFEROL 1,000 UNIT TAB PO (09:13)
[2017-06-06] MEDS: SENNA TAB PO (09:14)
[2017-06-06] MEDS: SERTRALINE 100 MG TAB PO (09:14)
[2017-06-06] MEDS: FLUCONAZOLE 200 MG TAB PO (09:14)
[2017-06-06] MEDS: DOCUSATE SODIUM 100 MG CAP PO ×2 (09:14→21:13)
[2017-06-06] MEDS: ASPIRIN (EC) 81 MG TAB PO (09:14)
[2017-06-06] MEDS: OXYBUTYNIN 5 MG TAB PO ×3 (09:14→21:13)
[2017-06-06] MEDS: traMADol 50 MG TAB PO ×2 (09:20→21:11)
[2017-06-06] MEDS: MAGNESIUM SULFATE 2 GM/50 ML 50 ML IVPB (10:30)
[2017-06-06] MEDS: MAGNESIUM OXIDE 400 MG TAB PO (13:14)
[2017-06-06] MEDS: SOD FERRIC GLUC COMPLX 125 MG in SOD CHLORIDE 0.9% 100 ML IVPB (17:26)
[2017-06-06] MEDS: VALSARTAN 80 MG TAB PO (21:12)
[2017-06-06] MEDS: ATORVASTATIN 20 MG TAB PO (21:13)
[2017-06-06] MEDS: ZOLPIDEM 5 MG TAB PO (22:19)
[2017-06-07] MEDS: IPRATROPIUM (NEB) 0.5 MG/2.5 ML AMP INH ×6 (01:00→21:00)
[2017-06-07] MEDS: DIPHENHYD/MYLANTA/LIDO (PO SYG) PO ×6 (01:00→20:39)
[2017-06-07] MEDS: GUAIFENESIN 20 MG/ML 5ML CUP PO ×6 (01:00→20:36)
[2017-06-07] MEDS: PANTOPRAZOLE (EC) 40 MG TAB PO ×2 (05:40→17:40)
[2017-06-07] MEDS: CHLORHEXIDINE GLUCONATE 15 ML UD CUP MT ×2 (09:00→20:36)
[2017-06-07] MEDS: AMLODIPINE 10 MG TAB PO (09:00)
[2017-06-07] MEDS: LIDOCAINE 5% PATCH TD ×3 (09:00→09:23)
[2017-06-07] MEDS: LACTULOSE 30ML CUP PO (09:21)
[2017-06-07] MEDS: SENNA TAB PO (09:21)
[2017-06-07] MEDS: NYSTATIN SUSP 5 ML CUP PO ×4 (09:21→20:36)
[2017-06-07] MEDS: FLUCONAZOLE 200 MG TAB PO (09:22)
[2017-06-07] MEDS: SERTRALINE 100 MG TAB PO (09:22)
[2017-06-07] MEDS: DOCUSATE SODIUM 100 MG CAP PO ×2 (09:22→20:37)
[2017-06-07] MEDS: RANITIDINE 150 MG TAB PO ×2 (09:22→20:37)
[2017-06-07] MEDS: OXYBUTYNIN 5 MG TAB PO ×3 (09:22→20:37)
[2017-06-07] MEDS: FAMOTIDINE 20 MG TAB PO (09:22)
[2017-06-07] MEDS: CHOLECALCIFEROL 1,000 UNIT TAB PO (09:22)
[2017-06-07] MEDS: ASPIRIN (EC) 81 MG TAB PO (09:22)
[2017-06-07] MEDS: NYSTATIN 30 GM POWDER BTL TOP ×2 (09:26→20:39)
[2017-06-07] MEDS: SILVER SULFADIAZINE 1% 25 GM CR TOP ×2 (09:26→20:39)
[2017-06-07] MEDS: CYANOCOBALAMIN 1000 MCG INJ IM (13:09)
[2017-06-07 14:05] LABS: ADD UMIC YES; UR ASCORBIC ACID NEGATIVE (NEGATIVE); UR BILIRUBIN (Dip) NEGATIVE (NEGATIVE); UR BLOOD (Dip) NEGATIVE (NEGATIVE); UR CLARITY TURBID (CLEAR); UR COLOR AMBER (YELLOW); UR GLUCOSE (Dip) NEGATIVE (NEGATIVE); UR KETONES (Dip) NEGATIVE (NEGATIVE); UR LEUKOCYTE ESTERASE (Dip) 3+ Leu/ul (NEGATIVE); UR NITRITE (Dip) NEGATIVE (NEGATIVE); UR RBC 10 /HPF (0-5); UR SPECIFIC GRAVITY (Dip) 1.021 (1.003-1.030); UR TOTAL PROTEIN (Dip) 2+ mg/dl (NEGATIVE); UR UROBILINOGEN (Dip) NEGATIVE (NEGATIVE); UR WBC > 182 /HPF (0-5)
[2017-06-07] MEDS: SOD FERRIC GLUC COMPLX 125 MG in SOD CHLORIDE 0.9% 100 ML IVPB (16:55)
[2017-06-07] MEDS: ATORVASTATIN 20 MG TAB PO (20:36)
[2017-06-07] MEDS: VALSARTAN 80 MG TAB PO (20:37)
[2017-06-07] MEDS: ZOLPIDEM 5 MG TAB PO (20:59)
[2017-06-08] MEDS: IPRATROPIUM (NEB) 0.5 MG/2.5 ML AMP INH ×6 (01:00→21:00)
[2017-06-08] MEDS: DIPHENHYD/MYLANTA/LIDO (PO SYG) PO ×6 (01:00→21:00)
[2017-06-08] MEDS: GUAIFENESIN 20 MG/ML 5ML CUP PO ×6 (01:00→21:00)
[2017-06-08] MEDS: PANTOPRAZOLE (EC) 40 MG TAB PO ×2 (06:29→17:40)
[2017-06-08 07:31] LABS: WHITE BLOOD COUNT 12.3 10^3/ul (4.8-10.8)
[2017-06-08 07:31] LABS: ABNORMAL IP MESSAGE 1; HEMATOCRIT 36.9 % (37.0-47.0); HEMOGLOBIN 11.6 g/dl (12.0-16.0); MEAN CORPUSCULAR HEMOGLOBIN 24.3 pg (29.0-33.0); MEAN CORPUSCULAR HGB CONC 31.4 g/dl (32.0-37.0); MEAN CORPUSCULAR VOLUME 77.4 fl (82.0-101.0); PLATELET COUNT 184 10^3/UL (140-415); RED BLOOD COUNT 4.77 10^6/ul (4.20-5.40); RED CELL DISTRIBUTION WIDTH 17.7 % (11.5-14.5)
[2017-06-08 07:51] LABS: ANION GAP 18 (8-16); BLOOD UREA NITROGEN 19 mg/dl (7-20); CALCIUM 8.9 mg/dl (8.4-10.2); CARBON DIOXIDE 22 mmol/L (21-31); CHLORIDE 105 mmol/L (97-110); GLUCOSE 110 mg/dl (70-220); MAGNESIUM 1.6 mg/dl (1.7-2.5); PHOSPHORUS 3.1 mg/dl (2.5-4.9); POTASSIUM 4.1 mmol/L (3.5-5.1); SODIUM 141 mmol/L (135-144)
[2017-06-08 08:00] LABS: ADD MAN DIFF? YES; POSITIVE DIFF @See below
[2017-06-08] MEDS: SILVER SULFADIAZINE 1% 25 GM CR TOP ×2 (09:00→21:00)
[2017-06-08] MEDS: CHLORHEXIDINE GLUCONATE 15 ML UD CUP MT ×2 (09:00→21:00)
[2017-06-08] MEDS: NYSTATIN 30 GM POWDER BTL TOP ×2 (09:00→21:00)
[2017-06-08 09:48] LABS: ANISOCYTOSIS 2+ (0-0); BAND NEUTROPHILS #M 0.9 10^3/ul (0.0-0.6); BAND NEUTROPHILS % (M) 8 % (0-4); BASOPHIL #M 0.2 10^3/ul (0.0-0.0); BASOPHILS % (M) 2 % (0-2); ERYTHROBLAST% (NRBC) (M) 2 % (0-0); LYMPHOCYTES #M 1.5 10^3/ul (0.8-2.9); LYMPHOCYTES % (M) 13 % (15-51); METAMYELOCYTES #M 0.2 10^3/ul (0.0-0.0); METAMYELOCYTES %M 2 % (0-0); MICROCYTOSIS 2+ (0-0); MONOCYTE #M 0.4 10^3/ul (0.3-0.9); MONOCYTES % (M) 4 % (0-11); MYELOCYTES #M 0.2 10^3/ul (0.0-0.0); MYELOCYTES % (M) 2 % (0-0); PLATELET ESTIMATE NORMAL; POIKILOCYTOSIS 2+ (0-0); SEG NEUT #M 8.6 10^3/ul (1.6-7.5); SEGMENTED NEUTROPHILS (M) % 69 % (39-77); SMUDGE%M 4 % (0-0)
[2017-06-08] MEDS: RANITIDINE 150 MG TAB PO ×2 (10:05→21:42)
[2017-06-08] MEDS: FAMOTIDINE 20 MG TAB PO (10:05)
[2017-06-08] MEDS: NYSTATIN SUSP 5 ML CUP PO ×4 (10:05→21:22)
[2017-06-08] MEDS: SERTRALINE 100 MG TAB PO (10:05)
[2017-06-08] MEDS: CHOLECALCIFEROL 1,000 UNIT TAB PO (10:05)
[2017-06-08] MEDS: OXYBUTYNIN 5 MG TAB PO ×4 (10:06→21:40)
[2017-06-08] MEDS: SENNA TAB PO (10:06)
[2017-06-08] MEDS: ASPIRIN (EC) 81 MG TAB PO (10:06)
[2017-06-08] MEDS: DOCUSATE SODIUM 100 MG CAP PO ×2 (10:06→21:22)
[2017-06-08] MEDS: AMLODIPINE 10 MG TAB PO (10:07)
[2017-06-08] MEDS: FLUCONAZOLE 200 MG TAB PO (10:07)
[2017-06-08] MEDS: LIDOCAINE 5% PATCH TD ×3 (10:11)
[2017-06-08] MEDS: traMADol 50 MG TAB PO (10:11)
[2017-06-08] MEDS: MAGNESIUM SULFATE 2 GM/50 ML 50 ML IVPB (10:13)
[2017-06-08] MEDS: CYANOCOBALAMIN 1000 MCG INJ IM (10:13)
[2017-06-08] MEDS: SOD FERRIC GLUC COMPLX 125 MG in SOD CHLORIDE 0.9% 100 ML IVPB (17:36)
[2017-06-08] MEDS: ATORVASTATIN 20 MG TAB PO (21:00)
[2017-06-08] MEDS: VALSARTAN 80 MG TAB PO (21:23)
[2017-06-08] MEDS: ZOLPIDEM 5 MG TAB PO (22:25)
[2017-06-09] MEDS: DIPHENHYD/MYLANTA/LIDO (PO SYG) PO ×6 (01:00→21:00)
[2017-06-09] MEDS: GUAIFENESIN 20 MG/ML 5ML CUP PO ×6 (01:00→21:00)
[2017-06-09] MEDS: IPRATROPIUM (NEB) 0.5 MG/2.5 ML AMP INH ×6 (01:00→21:09)
[2017-06-09] MEDS: PANTOPRAZOLE (EC) 40 MG TAB PO ×2 (07:02→18:18)
[2017-06-09 07:39] LABS: WHITE BLOOD COUNT 9.9 10^3/ul (4.8-10.8)
[2017-06-09 07:39] LABS: ABNORMAL IP MESSAGE 1; HEMATOCRIT 35.2 % (37.0-47.0); HEMOGLOBIN 11.1 g/dl (12.0-16.0); MEAN CORPUSCULAR HEMOGLOBIN 24.4 pg (29.0-33.0); MEAN CORPUSCULAR HGB CONC 31.5 g/dl (32.0-37.0); MEAN CORPUSCULAR VOLUME 77.5 fl (82.0-101.0); MEAN PLATELET VOLUME 10.4 fl (7.4-10.4); PLATELET COUNT 171 10^3/UL (140-415); RED BLOOD COUNT 4.54 10^6/ul (4.20-5.40); RED CELL DISTRIBUTION WIDTH 17.9 % (11.5-14.5)
[2017-06-09 07:44] LABS: ADD MAN DIFF? YES; POSITIVE DIFF @See below
[2017-06-09 08:14] LABS: MAGNESIUM 1.8 mg/dl (1.7-2.5)
[2017-06-09] MEDS: FLUCONAZOLE 200 MG TAB PO (08:40)
[2017-06-09] MEDS: ASPIRIN (EC) 81 MG TAB PO (08:41)
[2017-06-09] MEDS: OXYBUTYNIN 5 MG TAB PO ×3 (08:42→21:06)
[2017-06-09] MEDS: RANITIDINE 150 MG TAB PO ×2 (08:43→21:07)
[2017-06-09] MEDS: SERTRALINE 100 MG TAB PO (08:45)
[2017-06-09] MEDS: AMLODIPINE 10 MG TAB PO (08:45)
[2017-06-09] MEDS: LIDOCAINE 5% PATCH TD ×3 (08:55→08:56)
[2017-06-09] MEDS: CYANOCOBALAMIN 1000 MCG INJ IM (08:57)
[2017-06-09] MEDS: NYSTATIN 30 GM POWDER BTL TOP ×2 (09:00→21:00)
[2017-06-09] MEDS: CHLORHEXIDINE GLUCONATE 15 ML UD CUP MT ×2 (09:00→21:00)
[2017-06-09] MEDS: SILVER SULFADIAZINE 1% 25 GM CR TOP ×2 (09:00→21:00)
[2017-06-09] MEDS: NYSTATIN SUSP 5 ML CUP PO ×4 (09:00→21:06)
[2017-06-09] MEDS: FAMOTIDINE 20 MG TAB PO (09:00)
[2017-06-09] MEDS: traMADol 50 MG TAB PO ×2 (09:06→18:17)
[2017-06-09 09:45] LABS: ANISOCYTOSIS 2+ (0-0); BAND NEUTROPHILS #M 0.2 10^3/ul (0.0-0.6); BAND NEUTROPHILS % (M) 3 % (0-4); BURR CELLS 1+ (0-0); LYMPHOCYTES #M 2.4 10^3/ul (0.8-2.9); LYMPHOCYTES % (M) 25 % (15-51); METAMYELOCYTES #M 0.2 10^3/ul (0.0-0.0); METAMYELOCYTES %M 3 % (0-0); MICROCYTOSIS 2+ (0-0); MONOCYTE #M 0.7 10^3/ul (0.3-0.9); MONOCYTES % (M) 8 % (0-11); MYELOCYTES % (M) 1 % (0-0); PLATELET ESTIMATE NORMAL; POIKILOCYTOSIS 2+ (0-0); POLYCHROMASIA 1+ (0-0); REACTIVE LYMPHOCYTES #M 0.1 10^3/ul (0.0-0.0); REACTIVE LYMPHOCYTES% (M) 2 % (0-0); SEG NEUT #M 5.8 10^3/ul (1.6-7.5); SEGMENTED NEUTROPHILS (M) % 58 % (39-77); SMUDGE%M 2 % (0-0)
[2017-06-09] MEDS: DOCUSATE SODIUM 100 MG CAP PO ×2 (12:51→21:06)
[2017-06-09] MEDS: SENNA TAB PO (12:51)
[2017-06-09] MEDS: CHOLECALCIFEROL 1,000 UNIT TAB PO (13:03)
[2017-06-09] MEDS: CEFTRIAXONE 1 GM/50 ML (PMX) 50 ML IVPB (14:25)
[2017-06-09] MEDS: FOSFOMYCIN 3 GM PACKET PO (14:26)
[2017-06-09] MEDS: ZYVOX 600 MG TAB PO ×2 (14:26→21:07)
[2017-06-09] MEDS: L ACIDOPHIL/B LACTIS/B LONGUM CAPSULE PO ×2 (14:34→21:00)
[2017-06-09] MEDS: SOD FERRIC GLUC COMPLX 125 MG in SOD CHLORIDE 0.9% 100 ML IVPB (17:07)
[2017-06-09] MEDS: ONDANSETRON 4 MG INJ IV (19:27)
[2017-06-09] MEDS: ZOLPIDEM 5 MG TAB PO (21:07)
[2017-06-09] MEDS: ATORVASTATIN 20 MG TAB PO (21:07)
[2017-06-09] MEDS: VALSARTAN 80 MG TAB PO (21:08)
[2017-06-09] MEDS: BISACODYL 10 MG SUPP PR (21:24)
[2017-06-10] MEDS: IPRATROPIUM (NEB) 0.5 MG/2.5 ML AMP INH ×6 (00:59→20:30)
[2017-06-10] MEDS: DIPHENHYD/MYLANTA/LIDO (PO SYG) PO ×6 (01:00→20:48)
[2017-06-10] MEDS: GUAIFENESIN 20 MG/ML 5ML CUP PO ×6 (01:00→20:49)
[2017-06-10] MEDS: PANTOPRAZOLE (EC) 40 MG TAB PO ×2 (06:00→17:36)
[2017-06-10 07:40] LABS: ABNORMAL IP MESSAGE 1; HEMATOCRIT 28.8 % (37.0-47.0); HEMOGLOBIN 9.2 g/dl (12.0-16.0); MEAN CORPUSCULAR HEMOGLOBIN 24.7 pg (29.0-33.0); MEAN CORPUSCULAR HGB CONC 31.9 g/dl (32.0-37.0); MEAN CORPUSCULAR VOLUME 77.4 fl (82.0-101.0); MEAN PLATELET VOLUME 9.9 fl (7.4-10.4); PLATELET COUNT 119 10^3/UL (140-415); RED BLOOD COUNT 3.72 10^6/ul (4.20-5.40); RED CELL DISTRIBUTION WIDTH 18.2 % (11.5-14.5)
[2017-06-10 07:40] LABS: WHITE BLOOD COUNT 6.4 10^3/ul (4.8-10.8)
[2017-06-10 07:45] LABS: ADD MAN DIFF? YES; POSITIVE DIFF @See below
[2017-06-10 08:01] LABS: ANION GAP 13 (8-16); BLOOD UREA NITROGEN 14 mg/dl (7-20); CALCIUM 8.2 mg/dl (8.4-10.2); CARBON DIOXIDE 25 mmol/L (21-31); CHLORIDE 105 mmol/L (97-110); CREATININE 0.87 mg/dl (0.44-1.00); GLUCOSE 86 mg/dl (70-220); MAGNESIUM 1.7 mg/dl (1.7-2.5); PHOSPHORUS 3.2 mg/dl (2.5-4.9); POTASSIUM 3.8 mmol/L (3.5-5.1); SODIUM 139 mmol/L (135-144)
[2017-06-10] MEDS: NYSTATIN SUSP 5 ML CUP PO ×4 (09:00→20:41)
[2017-06-10] MEDS: LIDOCAINE 5% PATCH TD ×3 (09:00→09:41)
[2017-06-10] MEDS: AMLODIPINE 10 MG TAB PO (09:00)
[2017-06-10] MEDS: SERTRALINE 100 MG TAB PO (09:42)
[2017-06-10] MEDS: SILVER SULFADIAZINE 1% 25 GM CR TOP ×2 (09:42→20:50)
[2017-06-10] MEDS: CYANOCOBALAMIN 1000 MCG INJ IM (09:43)
[2017-06-10] MEDS: ZYVOX 600 MG TAB PO (09:44)
[2017-06-10] MEDS: FLUCONAZOLE 200 MG TAB PO (09:44)
[2017-06-10] MEDS: FAMOTIDINE 20 MG TAB PO (09:45)
[2017-06-10] MEDS: ASPIRIN (EC) 81 MG TAB PO (09:45)
[2017-06-10] MEDS: SENNA TAB PO (09:45)
[2017-06-10] MEDS: DOCUSATE SODIUM 100 MG CAP PO ×3 (09:45→20:59)
[2017-06-10] MEDS: OXYBUTYNIN 5 MG TAB PO ×4 (09:45→20:54)
[2017-06-10] MEDS: RANITIDINE 150 MG TAB PO ×2 (09:45→20:46)
[2017-06-10] MEDS: CHOLECALCIFEROL 1,000 UNIT TAB PO (09:45)
[2017-06-10] MEDS: L ACIDOPHIL/B LACTIS/B LONGUM CAPSULE PO ×3 (09:46→20:41)
[2017-06-10] MEDS: CHLORHEXIDINE GLUCONATE 15 ML UD CUP MT ×2 (09:46→22:08)
[2017-06-10] MEDS: NYSTATIN 30 GM POWDER BTL TOP ×2 (09:48→20:49)
[2017-06-10 10:11] LABS: ANISOCYTOSIS 2+ (0-0); BAND NEUTROPHILS % (M) 1 % (0-4); HYPOCHROMASIA 1+ (0-0); LYMPHOCYTES % (M) 17 % (15-51); METAMYELOCYTES %M 1 % (0-0); MICROCYTOSIS 1+ (0-0); MONOCYTE #M 0.5 10^3/ul (0.3-0.9); MONOCYTES % (M) 9 % (0-11); OVALOCYTES 2+ (0-0); PLATELET ESTIMATE DECREASED; POIKILOCYTOSIS 2+ (0-0); POLYCHROMASIA 1+ (0-0); SEG NEUT #M 4.6 10^3/ul (1.6-7.5); SEGMENTED NEUTROPHILS (M) % 72 % (39-77); SMUDGE%M 7 % (0-0); TEAR DROP CELLS 1+ (0-0)
[2017-06-10] MEDS: traMADol 50 MG TAB PO (10:30)
[2017-06-10] MEDS: CEFTRIAXONE 1 GM/50 ML (PMX) 50 ML IVPB (13:07)
[2017-06-10] MEDS: FLUCONAZOLE 200 MG/NS (PMX) 100 ML IVPB (15:52)
[2017-06-10] MEDS ORDERED: AL HYDROX/MG TRISILICATE TAB PO (16:30)
[2017-06-10] MEDS: SOD FERRIC GLUC COMPLX 125 MG in SOD CHLORIDE 0.9% 100 ML IVPB (17:35)
[2017-06-10] MEDS: METOCLOPRAMIDE 10 MG INJ IV (17:36)
[2017-06-10] MEDS: LINEZOLID 600 MG/D5W (PMX) 300 ML IVPB (20:41)
[2017-06-10] MEDS: ATORVASTATIN 20 MG TAB PO ×2 (20:46→21:00)
[2017-06-10] MEDS: VALSARTAN 80 MG TAB PO (20:47)
[2017-06-10] MEDS: PHENOL 1.4% SOLN 180 ML BTL MT (20:49)
[2017-06-10] MEDS: ZOLPIDEM 5 MG TAB PO (22:15)
[2017-06-11] MEDS: DIPHENHYD/MYLANTA/LIDO (PO SYG) PO ×3 (00:12→09:50)
[2017-06-11] MEDS: GUAIFENESIN 20 MG/ML 5ML CUP PO ×3 (00:13→09:00)
[2017-06-11] MEDS: IPRATROPIUM (NEB) 0.5 MG/2.5 ML AMP INH ×6 (01:00→19:45)
[2017-06-11] MEDS: METOCLOPRAMIDE 10 MG INJ IV (05:54)
[2017-06-11] MEDS: PANTOPRAZOLE (EC) 40 MG TAB PO ×2 (05:54→17:46)
[2017-06-11] MEDS: LIDOCAINE 5% PATCH TD ×3 (09:00→09:44)
[2017-06-11] MEDS: SILVER SULFADIAZINE 1% 25 GM CR TOP ×2 (09:43→20:58)
[2017-06-11] MEDS: NYSTATIN 30 GM POWDER BTL TOP ×2 (09:44→20:45)
[2017-06-11] MEDS: traMADol 50 MG TAB PO ×2 (09:46→20:55)
[2017-06-11] MEDS: RANITIDINE 150 MG TAB PO ×2 (09:47→20:44)
[2017-06-11] MEDS: DOCUSATE SODIUM 100 MG CAP PO ×2 (09:47→20:44)
[2017-06-11] MEDS: L ACIDOPHIL/B LACTIS/B LONGUM CAPSULE PO (09:47)
[2017-06-11] MEDS: ASPIRIN (EC) 81 MG TAB PO (09:48)
[2017-06-11] MEDS: SERTRALINE 100 MG TAB PO (09:48)
[2017-06-11] MEDS: OXYBUTYNIN 5 MG TAB PO (09:48)
[2017-06-11] MEDS: SENNA TAB PO (09:48)
[2017-06-11] MEDS: AMLODIPINE 10 MG TAB PO (09:48)
[2017-06-11] MEDS: CHLORHEXIDINE GLUCONATE 15 ML UD CUP MT (09:49)
[2017-06-11] MEDS: FAMOTIDINE 20 MG TAB PO (09:49)
[2017-06-11] MEDS: CHOLECALCIFEROL 1,000 UNIT TAB PO (09:49)
[2017-06-11] MEDS: CYANOCOBALAMIN 1000 MCG INJ IM (09:50)
[2017-06-11] MEDS: NYSTATIN SUSP 5 ML CUP PO (09:50)
[2017-06-11] MEDS: LINEZOLID 600 MG/D5W (PMX) 300 ML IVPB ×2 (09:55→20:44)
[2017-06-11] MEDS: CEFTRIAXONE 1 GM/50 ML (PMX) 50 ML IVPB (13:25)
[2017-06-11] MEDS: FLUCONAZOLE 200 MG/NS (PMX) 100 ML IVPB (16:10)
[2017-06-11] MEDS: ATORVASTATIN 20 MG TAB PO (20:46)
[2017-06-11] MEDS: ZOLPIDEM 5 MG TAB PO (22:11)
[2017-06-12] MEDS: IPRATROPIUM (NEB) 0.5 MG/2.5 ML AMP INH ×6 (00:11→21:00)
[2017-06-12] MEDS: PANTOPRAZOLE (EC) 40 MG TAB PO (06:00)
[2017-06-12] MEDS: CYANOCOBALAMIN 1000 MCG INJ IM (12:03)
[2017-06-12] MEDS: LINEZOLID 600 MG/D5W (PMX) 300 ML IVPB ×2 (12:06→21:36)
[2017-06-12] MEDS: LIDOCAINE 5% PATCH TD ×3 (13:00→13:19)
[2017-06-12] MEDS: IOHEXOL 300MG/ML 30 ML BTL (13:59)
[2017-06-12] MEDS: BARIUM SULFATE 135 ML (E-Z HD) PO (14:21)
[2017-06-12] MEDS: CEFTRIAXONE 1 GM/50 ML (PMX) 50 ML IVPB (18:10)
[2017-06-12] MEDS: DOCUSATE SODIUM 100 MG CAP PO ×2 (18:59→20:45)
[2017-06-12] MEDS: ASPIRIN (EC) 81 MG TAB PO (18:59)
[2017-06-12] MEDS: AMLODIPINE 10 MG TAB PO (19:00)
[2017-06-12] MEDS: SERTRALINE 100 MG TAB PO (19:00)
[2017-06-12] MEDS: CHOLECALCIFEROL 1,000 UNIT TAB PO (19:02)
[2017-06-12] MEDS: RANITIDINE 150 MG TAB PO ×2 (19:03→20:45)
[2017-06-12] MEDS: NYSTATIN 30 GM POWDER BTL TOP ×2 (19:06→20:58)
[2017-06-12] MEDS: FLUCONAZOLE 200 MG/NS (PMX) 100 ML IVPB (20:44)
[2017-06-12] MEDS: traMADol 50 MG TAB PO (20:57)
[2017-06-12] MEDS: ATORVASTATIN 20 MG TAB PO (20:58)
[2017-06-12] MEDS: SILVER SULFADIAZINE 1% 25 GM CR TOP (21:00)
[2017-06-12] MEDS: ZOLPIDEM 5 MG TAB PO (21:41)
[2017-06-13] MEDS: IPRATROPIUM (NEB) 0.5 MG/2.5 ML AMP INH ×4 (00:46→14:30)
[2017-06-13] MEDS: PANTOPRAZOLE (EC) 40 MG TAB PO (06:54)
[2017-06-13] MEDS: LINEZOLID 600 MG/D5W (PMX) 300 ML IVPB (08:47)
[2017-06-13] MEDS: LIDOCAINE 5% PATCH TD ×3 (08:48→08:50)
[2017-06-13] MEDS: ASPIRIN (EC) 81 MG TAB PO (08:49)
[2017-06-13] MEDS: CYANOCOBALAMIN 1000 MCG INJ IM (08:49)
[2017-06-13] MEDS: DOCUSATE SODIUM 100 MG CAP PO (08:49)
[2017-06-13] MEDS: SERTRALINE 100 MG TAB PO (08:49)
[2017-06-13] MEDS: CHOLECALCIFEROL 1,000 UNIT TAB PO (08:49)
[2017-06-13] MEDS: RANITIDINE 150 MG TAB PO (08:49)
[2017-06-13] MEDS: AMLODIPINE 10 MG TAB PO (08:50)
[2017-06-13] MEDS: SILVER SULFADIAZINE 1% 25 GM CR TOP (08:58)
[2017-06-13] MEDS: NYSTATIN 30 GM POWDER BTL TOP (08:58)
[2017-06-13] MEDS: CEFTRIAXONE 1 GM/50 ML (PMX) 50 ML IVPB (13:14)
[2017-06-13] MEDS: FLUCONAZOLE 200 MG/NS (PMX) 100 ML IVPB (15:10)
[2017-06-13] MEDS: FOSFOMYCIN 3 GM PACKET PO ×2 (15:23→15:30)
[2017-06-13] MEDS: traMADol 50 MG TAB PO (15:38)
== END 2017-06-13 16:15 | DRG 945 ==
LOC: VRC 21:43
PROC: F07Z5ZZ Bed Mobility Treatment (ICD-10-PCS; principal; 2017-05-29 12:50)
PROC: F07Z8ZZ Transfer Training Treatment (ICD-10-PCS; 2017-05-29 12:50)
PROC: F07Z9ZZ Gait Training/Functional Ambulation Treatment (ICD-10-PCS; 2017-05-29 12:50)
PROC: F08Z2ZZ Grooming/Personal Hygiene Treatment (ICD-10-PCS; 2017-05-29 12:50)
PROC: F08Z1ZZ Dressing Techniques Treatment (ICD-10-PCS; 2017-05-29 12:50)
PROC: F08Z0ZZ Bathing/Showering Techniques Treatment (ICD-10-PCS; 2017-05-29 12:50)
PROC: 0DB58ZX Excision of Esophagus, Via Natural or Artificial Opening Endoscopic, Diagnostic (ICD-10-PCS; 2017-05-29 12:50)
PROC: 0DB68ZX Excision of Stomach, Via Natural or Artificial Opening Endoscopic, Diagnostic (ICD-10-PCS; 2017-05-29 12:50)
DX: Z51.89 Encounter for other specified aftercare (principal); I50.33 Acute on chronic diastolic (congestive) heart failure; L03.116 Cellulitis of left lower limb; L03.115 Cellulitis of right lower limb; N39.0 Urinary tract infection, site not specified; N17.9 Acute kidney failure, unspecified; F33.1 Major depressive disorder, recurrent, moderate; E87.0 Hyperosmolality and hypernatremia; E86.0 Dehydration; E27.40 Unspecified adrenocortical insufficiency; B37.81 Candidal esophagitis; L03.113 Cellulitis of right upper limb; R53.81 Other malaise; I11.0 Hypertensive heart disease with heart failure; D50.9 Iron deficiency anemia, unspecified; E83.42 Hypomagnesemia; E78.5 Hyperlipidemia, unspecified; E53.8 Deficiency of other specified B group vitamins; F06.8 Other specified mental disorders due to known physiological condition; J02.9 Acute pharyngitis, unspecified; J45.909 Unspecified asthma, uncomplicated; J06.9 Acute upper respiratory infection, unspecified; K29.70 Gastritis, unspecified, without bleeding; K21.9 Gastro-esophageal reflux disease without esophagitis; M25.511 Pain in right shoulder; R55 Syncope and collapse; R63.0 Anorexia; R32 Unspecified urinary incontinence; S40.011A Contusion of right shoulder, initial encounter; S09.90XA Unspecified injury of head, initial encounter; W01.0XXA Fall on same level from slipping, tripping and stumbling without subsequent striking against object, initial encounter; Z74.09 Other reduced mobility; Z85.3 Personal history of malignant neoplasm of breast; Z91.81 History of falling
CPT/HCPCS: 71045; 74230; 80048; 80053; 80061; 81001; 82150; 83690; 83735; 84100; 84484; 85025; 87081; 87086; 88305; 88313; 93005; 93306; 94640; 97110; 97112; 97116; 97150; 97163; 97167; 97530; 97535; 97542